=== PATIENT | female | born 1945 | race Caucasian/White ===

== ENCOUNTER → 2016-06-18 | Outpatient (CLI) | payer OTHER ==
[~2016-06-18] MED LIST: ALEN70TA4 PO; CYCL5TAB PO; DXY100 PO; ENAL2.5T PO; HYDR12.55 PO; LOSA1TAB PO; MECL1TAB42 PO; MELO7.5T7 PO; NAPR-1169 PO; NAPR220T40 PO; PRED10TA PO; PRVHFAIN INH; TAMO20TA9 PO
[2016-06-18 13:04] VITALS: BP 124/73; PULSE 85; TEMP 36.9; O2SAT 94
--- NOTE | 2016-06-18 15:36 | Radiation Oncology Follow-Up ---
Radiation Oncology Follow-Up Date of Visit Jun 18, 2016. Reason For Visit Annual follow-up Radiation Completion Date 02/16/13 Diagnosis (1) Breast cancer Status: Resolved Onset Date: 10/16/2012 Location: right Histology Subtype: ductal Stage: l Permanent Comment: 1. Abnormal right breast mammogram and subsequent ultrasound 2. Biopsy revealing infiltrating ductal carcinoma, ER positive, GA positive, HER-2/jaylan negative 3. Status post partial mastectomy and sentinel lymph node biopsy pathologic stage [id number] 4. Status post completion of radiation therapy 02/16/2013 received 6120 cGy Last Edited By: Deepika Gonsales on Jun 09, 2014 16:13 Interim History She's been doing well over this past year. She denies any changes to her breast. She has noted no masses or tenderness or change of the axilla. She's had no swelling of her arm. She is up-to-date on mammography. She had a mammogram 06/12/2015. This was a right breast mammogram. There was no significant interval change, no evidence to suggest malignancy. Recommend short -term interval follow-up, bilateral diagnostic mammogram Be performed in 6 months. She did have a bilateral diagnostic mammogram 12/15/2015. This showed stable mammogram without finding of malignancy. She has on tamoxifen and denies side effects. She was found to have a superficial bladder tumor this past year. This was removed by cystoscopic examination. She is now followed by cystoscopic examinations. Allergies Coded Allergies: No Known Drug Allergy (Unverified Allergy, none, 11/12/12) Home Medications Scheduled Alendronate Sodium (Fosamax), 70 MG PO WK Enalapril Maleate (Vasotec), 2.5 MG PO DAILY Hydrochlorothiazide (Hydrochlorothiazide), 1 TAB PO DAILY Tamoxifen (Nolvadex), 20 MG PO QAM Scheduled PRN Cyclobenzaprine Hcl (Flexeril), 1 TAB PO HS PRN for Pain Naproxen (Naprosyn), 500 MG PO BID PRN for Pain Naproxen Sodium (Aleve), 220 MG PO BID PRN Review of Systems Gastrointestinal: Symptoms: WNL Oral: Symptoms: No Problems Respiratory: Symptoms: WNL Urinary: Symptoms: WNL Skin: Symptoms: No Problems Breast: Right Upper Arm Measurement: 30.2 Right Mid Arm Measurement: 26.2 Right Wrist Measurement: 17.3 Left Upper Arm Measurement: 29.8 Left Mid Arm Measurement: 25.5 Left Wrist Measurement: 17.2 Arm Dominence: Left Physical Exam Vital Signs Date Time Temp Pulse Resp B/P Pulse Ox O2 Delivery O2 Flow Rate FiO2 06/18/16 13:04 36.9 85 18 124/73 94 Fatigue: None General Appearance: no apparent distress Eyes: normal inspection, EOMI ENT: normal ENT inspection, hearing grossly normal Neck: no adenopathy, thyroid normal Respiratory/Chest: lungs clear, no respiratory distress, no accessory muscle use Breast: Breast examination reveals well-healed incisions of the right breast. There are no masses or tenderness no axillary adenopathy. There are some fibrous changes above the incision area which are unchanged from previous. There are no distinct masses. There is no axillary adenopathy. She has slight telangiectasia in the upper outer quadrant area. Using the Manchester score cosmesis she has a good outcome. Left breast no masses or tenderness and no axillary adenopathy. Cardiovascular: regular rate, rhythm, no gallop, no murmur Abdomen: non tender, soft Extremities: no pedal edema Neurologic/Psychiatric: no motor/sensory deficits, alert, normal mood/affect Skin: warm/dry Lymphatic: no adenopathy Additional Studies Mammography as reviewed above. Assessment & Plan Plan: Continue regular follow-up with Dr. Wang and her primary care provider. She is scheduled for follow-up mammography. She continues on tamoxifen. We asked her to return to our office in 1 year. She may call if she has any questions or concerns in the interim. Total Time In Follow-Up I spent 20 minutes speaking to the patient and performing examination. I spent 15 minutes reviewing information and completing this note. Copy To Julian Wang M.D.; Yessi Allen PA-C
== END | disposition home or self-care (01) ==
LOC: C.ONC 12:50
PROVIDERS: ATTEND Physician Assistant Medical
DX: Z08 Encounter for follow-up examination after completed treatment for malignant neoplasm (principal); Z92.3 Personal history of irradiation; Z85.3 Personal history of malignant neoplasm of breast

== ENCOUNTER 2016-11-13 18:37 | Inpatient (IN) | payer OTHER ==
[~2016-11-13] VITALS: Ht 162.6 cm; Wt 81.5 kg
[~2016-11-13 18:37] MED LIST changes: -DXY100 PO; -LOSA1TAB PO; -MECL1TAB42 PO; -MELO7.5T7 PO; -PRED10TA PO; -PRVHFAIN INH; +TAMO20TA47 PO; -TAMO20TA9 PO
[2016-11-13] MEDS ORDERED: POLYETHYLENE (MIRALAX) 17 GM PACK PO PRN (21:30)
[2016-11-13] MEDS ORDERED: ONDANSETRON INJ 2 MG/ML 2 ML VIAL IV PRN (21:30)
[2016-11-13] MEDS ORDERED: ACETAMINOPHEN 325 MG TAB PO PRN (21:30)
[2016-11-13 21:47] VITALS: BP 134/79; PULSE 89; TEMP 36.5; O2SAT 94; Ht 162.6 cm; Wt 81.5 kg
[2016-11-13] MEDS ORDERED: DEXTROSE 50% 50 ML SYR IV PRN (22:00)
[2016-11-13] MEDS ORDERED: GLUCAGON FOR INJ 1 MG VIAL SQ PRN (22:00)
[2016-11-13] MEDS ORDERED: GLUCOSE 40% GEL 15 GM TUBE PO PRN (22:00)
[2016-11-13] MEDS ORDERED: GLUCOSE 10 TABS/TUBE PO PRN (22:00)
--- NOTE | 2016-11-13 22:16 | DIAGNOSTIC IMAGING REPORT ---
CHEST ONE VIEW PORTABLE CLINICAL HISTORY: Severe refractory RLL pneumonia COMPARISON STUDY: Outside radiograph dated 11/06/2016 FINDINGS: There is a left-sided PICC catheter. The tip projects at the superior vena cava. The heart is enlarged. There are right perihilar and lower lung zone airspace opacities, consistent with a pneumonia. The findings are improved when compared the preceding study..[ IMPRESSION: Right perihilar and lower lung zone airspace opacities consistent with pneumonia. There has been interval improvement when compared the prior outside chest x-ray dated 11/06/2016 Electronically signed by: Jarad Zavala M.D. 11/13/2016 10:15 PM Dictated Date/Time: 11/13/2016 10:13 PM
[2016-11-13] MEDS ORDERED: CEFEPIME CONSULT ACTIVE PRN ×2 (22:40)
[2016-11-13] MEDS ORDERED: LEVOFLOXACIN CONSULT ACTIVE PRN (22:45)
[2016-11-13] MEDS ORDERED: VANCOMYCIN CONSULT ACTIVE PRN (22:45)
[2016-11-13] MEDS ORDERED: LOSA1TAB PO (22:49)
[2016-11-13] MEDS ORDERED: MELO7.5T7 PO (22:49)
[2016-11-13] MEDS ORDERED: MECL1TAB42 PO (22:49)
[2016-11-13] MEDS ORDERED: CEFEPIME IV 2000 MG in DEXTROSE 5% 100ML IV SCH (23:00)
[2016-11-13] MEDS ORDERED: INFLUENZA ADMINISTRATION CHARGE ONE (23:15)
[2016-11-13] MEDS ORDERED: INFLUENZA VACCINE HIGH DOSE 65+ 0.5 ML SYR IM. ONE (23:15)
[2016-11-13 23:18] VITALS: BP 118/69; PULSE 79; TEMP 36.6; O2SAT 95
--- NOTE | 2016-11-13 23:39 | History and Physical ---
History & Physical Date & Time of Service: Nov 13, 2016 at ~ 22:15 Chief Complaint: Pneumonia Primary Care Physician: Yessi Allen PA-C History of Present Illness 71 year old female who was transferred from [facility] for treatment of persistent pneumonia. Patient presented to the ER there on 11/05 with reports of shortness and breath and cough. Patient reports she was feeling sick a few days prior to going to the ED. In the ED, she was found to be hypoxic on room air and meet sepsis criteria. Patient has been treated with Zosyn, Zithromax, Rocephin, Vanco, and Cefepime. Patient underwent bronchoscopy and culture grew rare gram + cocci, AFB cultures are pending. Pneumonia has persisted and she continues to require significant amounts of oxygen. Patient currently feels like her breathing is slightly worse than yesterday but attributes it to the transfer here. She reports minimal cough. No chest pain. She denies lightheadedness, dizziness, diaphoresis, or syncope. Appetite has been good. She denies abdominal pain, nausea, vomiting, or diarrhea. No recent fevers or chills. She denies urinary symptoms. At the time of my exam, patient is resting in bed, currently on hiflow oxygen at 75% FiO2. Past Medical/Surgical History Medical Problems: (1) Bladder cancer Status: Chronic (2) Breast cancer Permanent Comment: 1. Abnormal right breast mammogram and subsequent ultrasound 2. Biopsy revealing infiltrating ductal carcinoma, ER positive, DE positive, HER-2/jaylan negative 3. Status post partial mastectomy and sentinel lymph node biopsy pathologic stage [id number] 4. Status post completion of radiation therapy 02/16/2013 received 6120 cGy Status: Chronic (3) HTN (hypertension) Status: Chronic (4) Osteoporosis Status: Chronic (5) Pneumonia Status: Chronic Surgical Problems: (1) H/O partial mastectomy Status: Chronic (2) History of appendectomy Status: Chronic (3) History of hysterectomy Status: Chronic (4) Hx of cholecystectomy Status: Chronic Family History FH: Alzheimers disease MOTHER FH: myocardial infarction FATHER Social History Smoking Status: Former Smoker Alcohol Use: occasionally Allergies Coded Allergies: No Known Drug Allergy (Unverified Allergy, Unknown, none, 11/13/16) Home Medications Scheduled Alendronate Sodium (Fosamax), 70 MG PO WK Hydrochlorothiazide (Hydrochlorothiazide), 1 TAB PO DAILY Losartan Potassium (Cozaar), 1 TAB PO DAILY Tamoxifen (Nolvadex), 20 MG PO QAM Scheduled PRN Cyclobenzaprine Hcl (Flexeril), 1 TAB PO HS PRN for Pain Meclizine Hcl (Meclizine Hcl), 1 TAB PO TID PRN for Dizziness or Vertigo Meloxicam (Mobic), 1 TAB PO DAILY PRN for Pain Review of Systems ROS per HPI, all other systems reviewed and negative Physical Exam Vital Signs Date Time Temp Pulse Resp B/P (MAP) Pulse Ox O2 Delivery O2 Flow Rate FiO2 11/13/16 21:47 36.5 89 22 134/79 94 40.0 75 General Appearance: no apparent distress Head: normocephalic, atraumatic Eyes: normal inspection, sclerae normal ENT: hearing grossly normal Neck: supple, no JVD Respiratory/Chest: no respiratory distress, + crackles (right mid-lower lung edouard), + pertinent finding (on HiFlow oxygen at 75% Fi02) Cardiovascular: regular rate, rhythm, no edema, normal peripheral pulses Abdomen/GI: normal bowel sounds, non tender, soft Extremities/Musculoskelatal: normal inspection, no calf tenderness Neurologic/Psych: no motor/sensory deficits, alert, normal mood/affect, oriented x 3 Skin: normal color, warm/dry Diagnostics Laboratory Results Results Past 24 Hours Test 11/13/16 21:52 11/13/16 22:01 Range/Units Microbiology Results 11/13/16 Blood Culture, Ordered Pending 11/13/16 Blood Culture, Ordered Pending Diagnostic Radiology CXR IMPRESSION: Right perihilar and lower lung zone airspace opacities consistent with pneumonia. There has been interval improvement when compared the prior outside chest x-ray dated 11/06/2016 Impression Assessment and Plan ACUTE HYPOXIC RESPIRATORY FAILURE DUE TO PERSISTENT RML/RLL PNEUMONIA - admitted to [facility] as a transfer from [facility] - patient presented there on 11/05 with reports of shortness of breath and was found to be hypoxic on room air with RML/RLL pneumonia, patient also met sepsis criteria however did not require pressors or mechanical ventilator support; she has been treated with Zosyn, azithromycin, Rocephin, Vanco, and Cefepime however pneumonia and oxygen requirements have been persistent - currently on high flow O2, 75% FiO2 - wean as able - patient underwent bronch and per verbal report culture grew rare gram + cocci , AFB still pending - noted echo report: EF 55%, LA enlargement, small pericardial effusion, trace MR - case discussed with Dr. Calderón - ? RML/RLL collapse, ? empyema - will place patient on IV Levaquin, Vanco, and Cefepime HTN - BP controlled - continue HCTZ and Losartan if renal function acceptable HX BREAST CANCER \ HX BLADDER CANCER - per review of CT reports from [facility] Mart there was a right breast density noted - patient reports she is following with her oncologist regularly and is due for mammogram next month - continue Tamoxifen - had bladder tumor resected last fall; patient reports cystoscopies every 4 months HEPATIC LESIONS - noted on CT report from DANI[facility] Cevallos - consider dedicated abdominal imaging DVT PROPHYLAXIS - SCDs for now, consider pharmacologic prophylaxis once labs resulted DISPO - In my clinical judgment this beneficiary meets acute admission criteria, established by [facility], that includes being hospitalized through two midnights. ADDENDUM: I have seen and examined the patient and agree with the assessment and plan as stated. Dr. Calderón is aware of the case prior to admission and accepts the case. Recommended adding atypical coverage, which we did. Cont hi flow O2. [place], DO Advanced Directives Existing Living Will: No Existing Power of Bevel Operator: No VTE Prophylaxis VTE Risk Assessment Done? Y/N: Yes Risk Level: Moderate Given or contraindicated: Enoxaparin (Lovenox)SQ
[2016-11-13 23:43] LABS: BASO % 0.1 %; BASO ABS # 0.02 K/uL (0-0.2); HEMATOCRIT 33.5 % (37-47); IG% 1.9 %; LYMPH % 12.3 %; LYMPH ABS # 1.82 K/uL (1.2-3.4); MEAN CELL VOLUME 101.8 fL (80-100); MEAN CORPUSCULAR HEMOGLOBIN 31.6 pg (25-34); MONO % 5.6 %; NEUT % 80.1 %; PLATELET COUNT 412 K/uL (130-400); RED BLOOD COUNT 3.29 M/uL (4.2-5.4); WHITE BLOOD COUNT 14.82 K/uL (4.8-10.8)
[2016-11-13] MEDS ORDERED: ALBUT/IPRATROP 3MG/0.5MG NEB 3 ML VIAL INH PRN (23:45)
[2016-11-13 23:48] LABS: COMPLETE YES
[2016-11-13 23:52] LABS: INR 1.1 (0.9-1.1); PROTHROMBIN TIME (PATIENT) 12.2 SECONDS (9.0-12.0)
[2016-11-14] VITALS (12 sets, daily range): BP systolic 99–137; BP diastolic 59–72; PULSE 62–99; TEMP 36.5–37; O2SAT 88–100
[2016-11-14] MEDS ORDERED: LEVOFLOXACIN 750MG / D5W IV SCH
[2016-11-14 00:14] LABS: ALB/GLOB RATIO 0.6 (0.9-2); CALCIUM 8.3 mg/dl (8.5-10.1); POTASSIUM 4.1 mmol/L (3.5-5.1)
[2016-11-14 01:55] LABS: INFLUENZA A PCR Neg for Influ A (NEG); INFLUENZA B PCR Neg for Influ B (NEG)
[2016-11-14] MEDS ORDERED: VANCOMYCIN INJ 2,000 MG in SODIUM CHLORIDE 0.9% 500ML 500 ML IV SCH (02:00)
[2016-11-14 06:10] LABS: ESTIMATED AVERAGE GLUCOSE 128 mg/dl; HA1C FLAG Normal (Normal)
[2016-11-14 06:19] LABS: BASO % 0.1 %; BASO ABS # 0.01 K/uL (0-0.2); COMPLETE YES; EOS % 0.3 %; IG% 1.6 %; LYMPH % 16.6 %; MEAN CELL VOLUME 102.6 fL (80-100); MEAN CORPUSCULAR HEMOGLOBIN 31.7 pg (25-34); MEAN CORPUSCULAR HGB CONC 30.9 g/dl (32-36); MEAN PLATELET VOLUME 9.3 fL (7.4-10.4); MONO % 6.9 %; NEUT % 74.5 %; PLATELET COUNT 430 K/uL (130-400); RED BLOOD COUNT 3.12 M/uL (4.2-5.4); WHITE BLOOD COUNT 15.67 K/uL (4.8-10.8)
[2016-11-14 06:31] LABS: BUN/CREATININE RATIO 29.6 (10-20); CALCIUM 7.8 mg/dl (8.5-10.1); CREATININE 0.85 mg/dl (0.60-1.20); POTASSIUM 3.9 mmol/L (3.5-5.1)
--- NOTE | 2016-11-14 08:08 | Pulmonary Consultation ---
History General Date of Service: Nov 14, 2016. Stated Complaint: Pneumonia HPI The patient is a 71 year old female who presents to [facility] with complaints of Pneumonia. The patient's primary care provider is Yessi Allen PA-C. 71-year-old female transferred from [facility] for continued hypoxemia. Patient has a past medical history significant for breast carcinoma previously treated with partial mastectomy and radiation therapy can 2012. Patient has been noting increasing dyspnea on exertion since last winter and decreased overall physical activity associated with that. She denies any chronic cough, fever, chills, GI signs or symptoms, pleurisy or classic cardiac chest pain associated with this. She presented to [facility] after one to 2 days of progressive dyspnea on exertion and was noted to have a diffuse infiltrate by chest x-ray and thoracic CAT scan. CT angiogram was also performed of the thorax with no signs of pulmonary embolism. Bronchoscopy was also noted with no significant findings in the proximal airways. She's been treated with multiple antibiotics: Zosyn, Zithromax, Rocephin, vancomycin and cefepime. There been no definitive lab findings per report but I'm waiting for the paper chart to be transferred over. During our conversation the patient continues to note dyspnea at rest and once again denied classic cardiac chest pain or pleurisy as well as productive cough. She did have an episode of epistaxis last night associated with the high flow nasal cannula system. Current workup WBC: 15K (Neutro#: 11.87) INR/PT: 1.1/12.2 CL: 108 BUN: 26 Lact Acid: 2.4 Alb: 2.5 Globulin: 4.1 Influenza A & B: Negative Pending Procalcitonin Chest x-ray 11/13/2016: Continued hilar fullness R > L, splayed breana, CT thorax 11/07/2016: RLL atelectasis bronchial airway sign Possible small pleural effusion CTA thorax 11/09/2016 Mediastinal, hilar adenopathy Continued lobar atelectasis RLL Small pleural effusion Historian: patient, EMS Review of Systems Constitutional: reports: malaise, weakness Eyes: reports: no symptoms ENT: reports: no symptoms Cardiovascular: reports: as stated in HPI Respiratory: reports: as stated in HPI Gastrointestinal: reports: no symptoms Genitourinary - Female: reports: no symptoms Musculoskeletal: reports: myalgias Integumentary: reports: no symptoms Neurologic: reports: no symptoms Psychiatric: reports: no symptoms Endocrine: no symptoms Hematologic / Lymphatic: no symptoms Allergic / Immunologic: no symptoms Past Medical History Past Medical History: 1. Breast carcinoma: Infiltrating ductal carcinoma: T1b/cpN0 pathologic stage ER positive NV positive Her-2/jaylan negative XRT (12/29/2012-02/04/2013) 4680 cGy---right breast XRT (02/05/2013-02/16/2013) 1440 cGy---electron boost 2 excisional cavity Total XRT 6120 cGy 2. 0, para 0, menarche at age 12 3. Hypertension 4. Osteoporosis 5. Degenerative joint disease 6. Reflux 7. Superficial bladder tumor Past Surgical History: 1. Partial mastectomy, sentinel axillary node: 10/16/2012 2. Right breast stereotactic biopsy: 09/29/2012 3. Previous right breast biopsy 2007--per the records 4. Cholecystectomy 5. Hysterectomy 6. Appendectomy 7. Left ganglionic cyst excision 8. Cystoscopy--removal of bladder tumor Family History FH: Alzheimers disease MOTHER FH: myocardial infarction FATHER 1. Breast cancer: 2 sisters, niece 2. Mother--congestive heart failure, Alzheimer's 3. Father--CVA, CAD/mi, hypertension 3. Sister--benign brain tumor Social History Tobacco: Less than half a pack per day times 10 years, quit 1993 Alcohol: No use Occupation: Retired accountant certified public Living status: Hx Tobacco Use In Past Year?: No Smoking Status: Former Smoker Allergies Coded Allergies: No Known Drug Allergy (Unverified Allergy, Unknown, none, 11/13/16) Current Medications Reported Home Medications Medications Dose Route/Sig Max Daily Dose Days Date Category Cozaar (Losartan Potassium) 25 Mg Tab 1 Tab PO DAILY 30 11/13/16 Reported Meclizine Hcl 25 Mg Tab 1 Tab PO TID PRN 30 11/13/16 Reported Mobic (Meloxicam) 7.5 Mg Tab 1 Tab PO DAILY PRN 30 11/13/16 Reported Flexeril (Cyclobenzaprine Hcl) 5 Mg Tab 1 Tab PO HS PRN 30 06/18/16 Reported Nolvadex (Tamoxifen Citrate) 20 Mg Tab 20 Mg PO QAM 06/08/13 Reported Fosamax (Alendronate Sodium) 70 Mg Tab 70 Mg PO WK 11/12/12 Reported Hydrochlorothiazide 12.5 Mg Tab 1 Tab PO DAILY 11/12/12 Reported Physical Physical Exam Vital Signs: Date Time Temp Pulse Resp B/P (MAP) Pulse Ox O2 Delivery O2 Flow Rate FiO2 11/14/16 04:00 High Flow Oxygen 40.0 75 11/14/16 03:37 36.8 78 16 124/71 (88) 93 High Flow Oxygen 40.0 11/14/16 00:00 High Flow Oxygen 40.0 75 11/13/16 23:18 36.6 79 20 118/69 (85) 95 High Flow Oxygen 40.0 11/13/16 21:47 36.5 89 22 134/79 94 40.0 75 General Appearance: moderate distress Head: NORMOCEPHALIC, ATRAUMATIC Eyes: PERRLA, NO DISCHARGE, EOMI, SCLERAE NORMAL ENT: NORMAL EAR EXAM, NORMAL NASAL EXAM, NORMAL MOUTH EXAM, NORMAL THROAT EXAM , NORMAL DENTAL EXAM Neck: NORMAL RANGE OF MOTION, NO TENDERNESS, TRACHEA MIDLINE, NO STRIDOR Respiratory: other (decreased breath sounds especially at the bases right greater than left/thoracic ultrasound demonstrated minimal pleural effusion on the right side with notable 2-3 B-lines per field) Cardiovasular: REGULAR RATE/RHYTHM, NORMAL S1S2, NO M/G/R, NO MURMUR Abdomen: NON TENDER, NORMAL BOWEL SOUNDS, NO REBOUND, NO MASSES, NO GUARDING Genitourinary - Female: EXTERNAL GENITALIA NORMAL Back: NORMAL INSPECTION, NO MIDLINE TENDERNESS, NO CVA TENDERNESS, NO PARAVERTEBRAL TTP Upper Extremities: NO EDEMA, NO DEFORMITY, NORMAL ROM Lower Extremities: NO EDEMA, NO DEFORMITY, NORMAL ROM Pulses: carotid (R) (2+), carotid (L) (2+), posterior tibial (R) (2+), posterior tibial (L) (2+) Neuro: ALERT, ORIENTED x 3, NORMAL MOTOR EXAM, NORMAL SENSATION, NORMAL CEREBELLAR EXAM, NORMAL SPEECH Reflexes: biceps (R) (2+), bicpes (L) (2+), patellar (R) (2+), patellar (L) (2+ ) Babinski Testing: right (downgoing), left (downgoing) Psychiatric: flat affect Diagnostics Labs Results Past 24 Hours Test 11/13/16 23:29 11/14/16 00:00 11/14/16 05:10 Range/Units White Blood Count 14.82 15.67 4.8-10.8 K/uL Red Blood Count 3.29 3.12 4.2-5.4 M/uL Hemoglobin 10.4 9.9 12.0-16.0 g/dL Hematocrit 33.5 32.0 37-47 % Mean Corpuscular Volume 101.8 102.6 80-100 fL Mean Corpuscular Hemoglobin 31.6 31.7 25-34 pg Mean Corpuscular Hemoglobin Concent 31.0 30.9 32-36 g/dl Platelet Count 412 430 130-400 K/uL Mean Platelet Volume 9.0 9.3 7.4-10.4 fL Neutrophils (%) (Auto) 80.1 74.5 % Lymphocytes (%) (Auto) 12.3 16.6 % Monocytes (%) (Auto) 5.6 6.9 % Eosinophils (%) (Auto) 0.0 0.3 % Basophils (%) (Auto) 0.1 0.1 % Neutrophils # (Auto) 11.87 11.69 1.4-6.5 K/uL Lymphocytes # (Auto) 1.82 2.60 1.2-3.4 K/uL Monocytes # (Auto) 0.83 1.08 0.11-0.59 K/uL Eosinophils # (Auto) 0.00 0.04 0-0.5 K/uL Basophils # (Auto) 0.02 0.01 0-0.2 K/uL RDW Standard Deviation 54.1 54.5 36.4-46.3 fL RDW Coefficient of Variation 14.7 14.8 11.5-14.5 % Immature Granulocyte % (Auto) 1.9 1.6 % Immature Granulocyte # (Auto) 0.28 0.25 0.00-0.02 K/uL Prothrombin Time 12.2 9.0-12.0 SECONDS Prothromb Time International Ratio 1.1 0.9-1.1 Sodium Level 142 141 136-145 mmol/L Potassium Level 4.1 3.9 3.5-5.1 mmol/L Chloride Level 108 109 98-107 mmol/L Carbon Dioxide Level 26 24 21-32 mmol/L Anion Gap 8.0 8.0 3-11 mmol/L Blood Urea Nitrogen 26 25 7-18 mg/dl Creatinine 1.00 0.85 0.60-1.20 mg/dl Est Creatinine Clear Calc Drug Dose 52.9 62.5 ml/min Estimated GFR () 65.6 79.9 Estimated GFR (Non- 56.6 68.9 BUN/Creatinine Ratio 26.0 29.6 10-20 Random Glucose 135 107 70-99 mg/dl Lactic Acid Level 2.4 0.4-2.0 mmol/L Calcium Level 8.3 7.8 8.5-10.1 mg/dl Total Bilirubin 0.4 0.2-1 mg/dl Aspartate Amino Transf (AST/SGOT) 33 15-37 U/L Alanine Aminotransferase (ALT/SGPT) 38 12-78 U/L Alkaline Phosphatase 84 45-117 U/L Total Protein 6.6 6.4-8.2 gm/dl Albumin 2.5 3.4-5.0 gm/dl Globulin 4.1 2.5-4.0 gm/dl Albumin/Globulin Ratio 0.6 0.9-2 Influenza Type A (RT-PCR) Neg for Influ A NEG Influenza Type B (RT-PCR) Neg for Influ B NEG Estimated Average Glucose 128 mg/dl Hemoglobin A1c 6.1 4.5-5.6 % Microbiology Results 11/13/16 Blood Culture, Received Pending 11/13/16 Blood Culture, Received Pending Diagnostic Radiology Chest x-ray 11/13/2016: Continued hilar fullness R > L, splayed breana, CT thorax 11/07/2016: RLL atelectasis bronchial airway sign Possible small pleural effusion CTA thorax 11/09/2016 Mediastinal, hilar adenopathy Continued lobar atelectasis RLL Small pleural effusion Impression Assessment and Plan 71-year-old female with continued hypoxemia: #1 Hypoxemia: Patient is currently on high flow oxygen system and continues to have notable desaturations when talking down to 88%. She also has no history of underlying lung disease or cardiac disease so clinically the most likely scenario she's having shunt physiology. Due to this I would like to repeat a noncontrast CT at this time as well as perform a echocardiogram with bubble study. I will review these initial evaluations and possibly then proceed if patient stable enough for bronchoscopy. As patient has not responded to broad- spectrum antibiotics it is likely the patient has an underlying interstitial/ vasculitic lung disease. Cryptogenic organizing pneumonia could have a similar presentation. Also the patient is currently on tamoxifen as well as hydrochlorothiazide which have been noted the past to cause interstitial lung changes/pneumonitis or even pulmonary emboli. At this time we'll hold those medications after checking with the primary team. Continue current high flow oxygen system support.
[2016-11-14] MEDS: ENOXAPARIN 40 MG/0.4 ML SYR SQ SCH (09:00)
--- NOTE | 2016-11-14 09:41 | DIAGNOSTIC IMAGING REPORT ---
CT SCAN OF THE CHEST WITHOUT IV CONTRAST CLINICAL HISTORY: Hypoxia. COMPARISON STUDY: Chest x-ray dated 11/13/2016. Chest CT from adjacent bladder dated 11/07/2016. TECHNIQUE: CT scan of the thorax was performed from the thoracic inlet to the upper abdomen. Images are reviewed in the axial, sagittal, and coronal planes. IV contrast was not administered for this examination as per the referring clinician. A dose lowering technique was utilized adhering to the principles of ALARA. CT DOSE: 854.32 mGy.cm FINDINGS: Thyroid: Imaged portions of the thyroid gland are normal in size and attenuation. Thoracic aorta: The thoracic aorta is normal in caliber and demonstrates standard 3-vessel arch anatomy. A left PICC line is in place. Heart: The heart is enlarged and without pericardial effusion. The main pulmonary arteries are dilated suggesting pulmonary artery hypertension. There are coronary artery calcifications. Lungs and pleural spaces: There is dense airspace consolidation involving the majority of the right lower lobe. The right upper and middle lobes appear clear, as does the left lung lobe. Trace pleural effusions are identified. The trachea and central airways are clear. Mediastinum: There is no mediastinal lymphadenopathy. Cinthia: Not well assessed without IV contrast. Axillae: There is no axillary lymphadenopathy. Upper abdomen: There is nodularity of the hepatic surface contour with hypertrophy of the left lobe and caudate suggesting changes of cirrhosis. 2 hepatic cysts are identified measuring up to 2.0 cm. Cholecystectomy clips are noted. There is a tiny hiatal hernia. The spleen is atrophic and contains calcifications. Cortical atrophy is noted in the partially imaged kidneys. Skeletal structures: The skeletal structures are osteopenic. Degenerative change and hyperkyphosis are noted in the thoracic spine. No lytic or blastic bony lesions are seen. IMPRESSION: 1. There is dense airspace consolidation in the right lower lobe, overall similar in appearance to the 11/07/2016 examination. The appearance is typical for pneumonia. Radiographic follow-up to resolution is recommended. 2. The left lung is clear. 3. Cardiomegaly and trace pleural effusions. 4. Cirrhotic liver morphology. 5. Additional findings as above. Electronically signed by: Armand Herndon M.D. 11/14/2016 9:40 AM Dictated Date/Time: 11/14/2016 9:32 AM
[2016-11-14] MEDS: HYDROCHLOROTHIAZIDE 25 MG TAB PO SCH (09:49)
[2016-11-14] MEDS: LOSARTAN POTASSIUM 25 MG TAB PO SCH (09:49)
[2016-11-14] MEDS: TAMOXIFEN CITRATE 10 MG TAB PO SCH (09:50)
[2016-11-14] MEDS: CEFEPIME IV 2000 MG in DEXTROSE 5% 100ML IV SCH ×2 (09:51→17:39)
[2016-11-14] MEDS ORDERED: CEFEPIME IV 2000 MG in DEXTROSE 5% 100ML IV SCH (11:00)
--- NOTE | 2016-11-14 12:53 | Clinical Documentation Query ---
ANDIE Fishman : CLINICAL DOCUMENTATION QUERY Patient is a 71 year old female accepted in transfer from [facility] for evaluation and treatment of acute hypoxemic respiratory failure in the setting of persistent RML/RLL pneumonia. Documentation notes include (in reference to [facility] visit) "patient also met sepsis criteria however did not require pressors or mechanical ventilator support; she has been treated with Zosyn, azithromycin, Rocephin, Vanco, and Cefepime however pneumonia and oxygen requirements have been persistent". Please clarify as clinically appropriate to ensure accurate DRG assignment. Thank you. In your clinical opinion is this patient being managed for: ( ) Sepsis secondary to persistent RML/RLL pneumonia, possibly gram negative and/or MRSA ( ) Not Agree ( ) Other explanation of clinical findings (Please Explain) ( ) Unable to determine (Please Define) ( ) Need to Discuss NO evidence of sepsis Persisted RML/RLL pneumonia -no no improvement after multiple abx tx Need to rule out Vasculitis or interstitial lung disease The medical record reflects the following clinical findings, treatment, and risk factors. Clinical Indicators: As above Treatment:Zosyn, azithromycin, Rocephin, Vanco, and Cefepime Risk Factors: Age, recent antibiotic use and hospitalization Please clarify and document your clinical opinion in the progress notes and discharge summary. Terms such as "probable", "suspected", "likely", "questionable", "possible", or "still to be ruled out" are acceptable. IF IN AGREEMENT, YOU MUST DOCUMENT ABOVE DIAGNOSTIC STATEMENT IN DAILY PROGRESS NOTES AND DISCHARGE SUMMARY. This document is not part of the patient's record. Thank You, Jesús Bazan, RN [phone]
[2016-11-14] MEDS: LEVALBUTEROL 0.63MG/3 ML NEB INH SCH ×2 (14:19→19:41)
--- NOTE | 2016-11-14 15:35 | Pharmacy Progress Note ---
Pharmacy Abx Initial Consult Date of Service Nov 14, 2016. Pharmacy Dosing Scope Date of Consult: 11/12/16 Consultation requested by: Dr. Perry Pharmacy is consulted to initiate Vancomycin, Levaquin and Cefepime dosing therapy, order appropriate labs and adjust drug dose/frequency. Subjective The patient is a 71 year old female admitted on Nov 13, 2016 at 21:32 directly from [facility] in [place] with worsening hypoxia/PNX. Patient had received multiple broad spectrum antibiotics at [facility] of which two (Cefepime and Vancomycin) were continued by Dr. Perry Objective Height (Feet): 5 Height (Inches): 4.00 Weight (Kilograms): 80.900 Vital Signs (Past 12Hrs) Vital Signs Past 12 Hours Date Time Temp Pulse Resp B/P (MAP) Pulse Ox O2 Delivery O2 Flow Rate FiO2 11/14/16 14:21 88 18 93 Nasal Cannula 40.0 80 11/14/16 12:01 36.6 82 18 117/69 (85) 96 High Flow Oxygen 11/14/16 12:00 94 High Flow Oxygen 40.0 75 11/14/16 08:00 94 High Flow Oxygen 40.0 75 11/14/16 07:59 36.8 85 18 127/72 (90) 92 High Flow Oxygen 11/14/16 04:00 High Flow Oxygen 40.0 75 11/14/16 03:37 36.8 78 16 124/71 (88) 93 High Flow Oxygen 40.0 Lab Results (24Hrs) Laboratory Tests (24 Hours) Test 11/13/16 23:29 11/14/16 05:10 Lactic Acid Level 2.4 mmol/L (0.4-2.0) *H Procalcitonin 0.14 ng/ml (0-0.5) White Blood Count 15.67 K/uL (4.8-10.8) H Red Blood Count 3.12 M/uL (4.2-5.4) L Hemoglobin 9.9 g/dL (12.0-16.0) L Hematocrit 32.0 % (37-47) L Mean Corpuscular Volume 102.6 fL (80-100) H Mean Corpuscular Hemoglobin 31.7 pg (25-34) Mean Corpuscular Hemoglobin Concent 30.9 g/dl (32-36) L Platelet Count 430 K/uL (130-400) H Mean Platelet Volume 9.3 fL (7.4-10.4) Neutrophils (%) (Auto) 74.5 % Lymphocytes (%) (Auto) 16.6 % Monocytes (%) (Auto) 6.9 % Eosinophils (%) (Auto) 0.3 % Basophils (%) (Auto) 0.1 % Neutrophils # (Auto) 11.69 K/uL (1.4-6.5) H Lymphocytes # (Auto) 2.60 K/uL (1.2-3.4) Monocytes # (Auto) 1.08 K/uL (0.11-0.59) H Eosinophils # (Auto) 0.04 K/uL (0-0.5) Basophils # (Auto) 0.01 K/uL (0-0.2) Micro Results Date/Time Source Procedure Growth Status 11/13/16 23:38 Blood Blood Culture Pending Received 11/13/16 23:29 Blood Blood Culture Pending Received 11/14/16 11:10 Nasal MRSA DNA Surveillance Screen Pending Received Risk Factors for Resistance * Hospitalization for 48 hours or more within the past 90 days (as noted; from [facility]) * Antimicrobial use within the last 90 days transferred from [facility] where she had received Zithromax, Cefepime, Zosyn, Rocephin and Vancomycin Assessment & Plan Assessment 71 year old female with Pneumonia directly admitted from [facility] Plan Vancomycin, Levaquin and Cefepime for treatment of Pneumonia Vancomycin IV * Loading dose: 2000 mg (~25 mg/kg) of note: patient had received several days of Vancomycin at [facility], I obtained a random level around 0930 that resulted in a level of 35mcg/ml. I calculated a half life of around 12 hours given patients current renal picture. * Maintenance dose: 1250 mg IV (~15mg/kg) every 14 hours * Goal trough level for PNX : 15 to 20 mcg/mL * Trough level ordered prior to 0200 dose on 11/16/16 Cefepime IV Given est CRCL of>60ml/min Cefepime 2gm IV every 8 hours Levaquin IV Given est CRCL of >50ml/min Levaquin 750mg IV every 24 hours. Pharmacy will continue to follow and will adjust dose/frequency as necessary. Thank you.
--- NOTE | 2016-11-14 18:33 | Progress Note ---
Internal Med Progress Note Date of Service: Nov 14, 2016. Provider Documentation: SUBJECTIVE: remains hypoxic , requiring high flow 02 had episode of dizzy spell with transfer form bedside commode to bed spo2 remained stable , was hypotensive SBP in 116 transiently recovered quickly no syncope lying in bed comfortably ,does not feel SOB , no orthopnea does not have any cough remains afebrile OBJECTIVE: Vital Signs-as noted below Exam: General-no sign of distress Eyes-sclera non icteric ENT-on high flow 02 Neck-no JVD Lungs-very diminished airflow , no audible wheeze or rales noted Heart-regular Abdomen-soft, non tender Extremities-no lower ext edema Neuro-AAO x3, no focal deficit Lab data as noted below. ASSESSMENT & PLAN: ACUTE HYPOXIC RESPIRATORY FAILURE: On going respiratory failure with Cxray and CT chest finding of persisted RLL infiltrate , not responding to multiple broad spectrum Abx was admitted to [facility] ICU since 11/05 with hypoxia/RML /RLL pneumonia medical records obtained form [facility] -pt does not have any prior hx of COPD , was not on home 02 -was treated with Zosyn, azithromycin, Rocephin, Vanco, and Cefepime however pneumonia and oxygen requirements have been persistent -underwent Bronchoscopy on 11/08/16 -gram stain shows gram + cocci , culture -no growth in 72 hrs Blood culture -no growth CT chest with contrast at [facility] 11/09/16 : no evidence of PE , dense consolidation of rt lower lobe most likely related to Pneumonia , non specific subcarinal and rt hilar adenopathy ECHO in [facility] : EF 55%, LA enlargement, small pericardial effusion, trace MR pt transferred to [facility] For persisted respiratory failure no clinical improvement after Abx tx /bronchoscopy/respiratory support with IV Steroids / Neb tx -no evidence of sepsis pt continued on Abx with IV Levaquin, Vancomycin, and Cefepime -till further culture report available repeat blood cultures ordered at [facility] Pulmonology consulted , appreciate input from Dr Langford concern for possible Vasculitis vs idiopathic interstitial lung disease -not responding to convention tx CT chest with out contrast a [facility] IMPRESSION: 1. There is dense airspace consolidation in the right lower lobe, overall similar in appearance to the 11/07/2016 examination. The appearance is typical for pneumonia. Radiographic follow-up to resolution is recommended. 2. The left lung is clear. 3. Cardiomegaly and trace pleural effusions. 4. Cirrhotic liver morphology. 5. Additional findings as above. ECHO No regional wall motion abnormalities noted. * The LV Ejection Fraction = 60-65%. * The right ventricle is mildly dilated. * The right ventricular systolic function is normal. * There is mild tricuspid regurgitation. * The calculated pulmonary artery systolic pressure is 32 mm Hg (normal). * There was no gross interatrial shunt on technically limited evaluaiton with administration of agitated saline contrast. * The resolution is not sufficient to exclude a PFO. * 2D findings do not suggest right ventricular pressure or volume overload. pt will continue to require High flow 02 for persistent hypoxia will order MAULIK. ANCA , ESR , C reactive protein level HTN - BP controlled - continue HCTZ and Losartan HX BREAST CANCER \ HX BLADDER CANCER - per review of CT reports from [facility] there was a right breast density noted - patient reports she is following with her oncologist regularly and is due for mammogram next month - continue Tamoxifen - had bladder tumor resected last fall; patient reports cystoscopies every 4 months HEPATIC LESIONS - noted on CT report from [facility] - consider dedicated abdominal imaging DVT PROPHYLAXIS - sub q heparin need to be on hold prior to any Bronc procedure Full code DISPOSITION to be determined cont to monitor in PCU Vital Signs: Date Time Temp Pulse Resp B/P (MAP) Pulse Ox O2 Delivery O2 Flow Rate FiO2 11/14/16 20:00 High Flow Oxygen 40.0 75 11/14/16 19:46 99 18 88 Nasal Cannula 40.0 60 11/14/16 19:40 36.5 90 20 122/69 (86) 100 High Flow Oxygen 40.0 11/14/16 16:35 36.7 83 18 122/71 (88) 95 High Flow Oxygen 11/14/16 16:00 93 Nasal Cannula 40.0 80 11/14/16 14:21 88 18 93 Nasal Cannula 40.0 80 11/14/16 12:01 36.6 82 18 117/69 (85) 96 High Flow Oxygen 11/14/16 12:00 94 High Flow Oxygen 40.0 75 11/14/16 08:00 94 High Flow Oxygen 40.0 75 11/14/16 07:59 36.8 85 18 127/72 (90) 92 High Flow Oxygen 11/14/16 04:00 High Flow Oxygen 40.0 75 11/14/16 03:37 36.8 78 16 124/71 (88) 93 High Flow Oxygen 40.0 11/14/16 00:00 High Flow Oxygen 40.0 75 11/13/16 23:18 36.6 79 20 118/69 (85) 95 High Flow Oxygen 40.0 Lab Results: Results Past 24 Hours Test 11/13/16 23:29 11/14/16 00:00 11/14/16 05:10 11/14/16 09:40 Range/Units White Blood Count 14.82 15.67 4.8-10.8 K/uL Red Blood Count 3.29 3.12 4.2-5.4 M/uL Hemoglobin 10.4 9.9 12.0-16.0 g/dL Hematocrit 33.5 32.0 37-47 % Mean Corpuscular Volume 101.8 102.6 80-100 fL Mean Corpuscular Hemoglobin 31.6 31.7 25-34 pg Mean Corpuscular Hemoglobin Concent 31.0 30.9 32-36 g/dl Platelet Count 412 430 130-400 K/uL Mean Platelet Volume 9.0 9.3 7.4-10.4 fL Neutrophils (%) (Auto) 80.1 74.5 % Lymphocytes (%) (Auto) 12.3 16.6 % Monocytes (%) (Auto) 5.6 6.9 % Eosinophils (%) (Auto) 0.0 0.3 % Basophils (%) (Auto) 0.1 0.1 % Neutrophils # (Auto) 11.87 11.69 1.4-6.5 K/uL Lymphocytes # (Auto) 1.82 2.60 1.2-3.4 K/uL Monocytes # (Auto) 0.83 1.08 0.11-0.59 K/uL Eosinophils # (Auto) 0.00 0.04 0-0.5 K/uL Basophils # (Auto) 0.02 0.01 0-0.2 K/uL RDW Standard Deviation 54.1 54.5 36.4-46.3 fL RDW Coefficient of Variation 14.7 14.8 11.5-14.5 % Immature Granulocyte % (Auto) 1.9 1.6 % Immature Granulocyte # (Auto) 0.28 0.25 0.00-0.02 K/uL Prothrombin Time 12.2 9.0-12.0 SECONDS Prothromb Time International Ratio 1.1 0.9-1.1 Sodium Level 142 141 136-145 mmol/L Potassium Level 4.1 3.9 3.5-5.1 mmol/L Chloride Level 108 109 98-107 mmol/L Carbon Dioxide Level 26 24 21-32 mmol/L Anion Gap 8.0 8.0 3-11 mmol/L Blood Urea Nitrogen 26 25 7-18 mg/dl Creatinine 1.00 0.85 0.60-1.20 mg/dl Est Creatinine Clear Calc Drug Dose 52.9 62.5 ml/min Estimated GFR () 65.6 79.9 Estimated GFR (Non- 56.6 68.9 BUN/Creatinine Ratio 26.0 29.6 10-20 Random Glucose 135 107 70-99 mg/dl Lactic Acid Level 2.4 0.4-2.0 mmol/L Calcium Level 8.3 7.8 8.5-10.1 mg/dl Total Bilirubin 0.4 0.2-1 mg/dl Aspartate Amino Transf (AST/SGOT) 33 15-37 U/L Alanine Aminotransferase (ALT/SGPT) 38 12-78 U/L Alkaline Phosphatase 84 45-117 U/L Total Protein 6.6 6.4-8.2 gm/dl Albumin 2.5 3.4-5.0 gm/dl Globulin 4.1 2.5-4.0 gm/dl Albumin/Globulin Ratio 0.6 0.9-2 Procalcitonin 0.14 0-0.5 ng/ml Influenza Type A (RT-PCR) Neg for Influ A NEG Influenza Type B (RT-PCR) Neg for Influ B NEG Estimated Average Glucose 128 mg/dl Hemoglobin A1c 6.1 4.5-5.6 % Random Vancomycin Level 35.3 mcg/ml Microbiology Results 11/13/16 Blood Culture, Received Pending 11/13/16 Blood Culture, Received Pending 11/14/16 MRSA DNA Surveillance Screen - Final, Complete Specimen Negative for MRSA by DNA Probe
--- NOTE | 2016-11-14 18:57 | ECHOCARDIOGRAM REPORT ---
*NOTICE TO RECEIVING REPUBLICAN AGENCY This information is strictly Confidential and protected under [place] law. [place] law prohibits you from making any further disclosure of this information unless further disclosure is expressly permitted by the written consent of the person to whom it pertains or is authorized by law. A general authorization for the release of medical or other information is not sufficient for this purpose. Hospital accepts no responsibility if the information is made available to any other person, INCLUDING THE PATIENT. Interpretation Summary * Name: TYLER TRIPP Study Date: 11/14/2016 03:21 PM BP: 117/69 mmHg * Patient Location: .2T\S\S230\S\1 HR: 88 * : 1945 (M/d/yyyy) Gender: Female Height: 64 in * Age: 71 yrs Ethnicity: [place] Weight: 178 lb * Ordering Physician: Joseph Calderón * Referring Physician: No Doctor, Assigned * Performed By: Jayde Patterson [facility] * * Reason For Study: Ischemic Cardiomyopathy * BSA: 1.9 m2 * -- Conclusions -- * No regional wall motion abnormalities noted. * The LV Ejection Fraction = 60-65%. * The right ventricle is mildly dilated. * The right ventricular systolic function is normal. * There is mild tricuspid regurgitation. * The calculated pulmonary artery systolic pressure is 32 mm Hg (normal). * There was no gross interatrial shunt on technically limited evaluation with administration of agitated saline contrast. * The resolution is not sufficient to exclude a PFO. * 2D findings do not suggest right ventricular pressure or volume overload. Procedure Details * A complete two-dimensional transthoracic echocardiogram was performed (2D, M-mode, Doppler and color flow Doppler). * A saline contrast injection was performed to assess for cardiac shunting. * The injection was performed through an intravenous line in the left arm. * The attending nurse who injected the saline contrast was Jose Tenorio RN. * A total of 20 cc of agitated saline was given. Left Ventricle * The left ventricle is normal in size. * There is normal left ventricular wall thickness. * Left ventricular systolic function is normal. * Ejection Fraction = 60-65%. * The left ventricular wall motion is normal. * No regional wall motion abnormalities noted. Right Ventricle * The right ventricle is mildly dilated. * The right ventricular systolic function is normal. Atria * The left atrium is mildly dilated. * Right atrial size is normal. * There was no gross interatrial shunt on technically limited evaluaiton with administration of agitated saline contrast. The resolution is not sufficient to exclude a PFO. Mitral Valve * The mitral valve is normal. * There is no mitral valve stenosis. * Significant mitral regurgitation is absent. Tricuspid Valve * The tricuspid valve is normal. * There is no tricuspid stenosis. * There is mild tricuspid regurgitation. * Doppler findings do not suggest pulmonary hypertension. * The calculated pulmonary artery systolic pressure is 32 mm Hg (normal). Aortic Valve * The aortic valve is trileaflet. * Aortic valve sclerosis mild, without significant aortic valvular stenosis. * Aortic stenosis is absent. * There is no significant aortic regurgitation. Pulmonic Valve * The pulmonary valve is not well seen, but the Doppler examination is normal without significant regurgitation or stenosis. Great Vessels * The aortic root and proximal ascending aorta are normal sized. Pericardium/Pleural * There is no pericardial effusion. Great Vessels * Normal inferior vena cava diameter and respiratory variation suggests normal central venous pressure. Left Ventricular Diastolic Function * Grade I diastolic dysfunction, (abnormal relaxation pattern). MMode 2D Measurements and Calculations IVSd 0.93 cm IVSs 1.3 cm LVIDd 4.3 cm LVIDs 2.8 cm LVPWd 0.97 cm LVPWs 1.3 cm IVS/LVPW 0.97 FS 34.7 % EDV(Teich) 81.4 ml ESV(Teich) 29.1 ml EF(Teich) 64.2 % EDV(cubed) 77.4 ml ESV(cubed) 21.6 ml EF(cubed) 72.2 % % IVS thick 36.5 % % LVPW thick 35.1 % LV mass(C)d 130.9 grams LV mass(C)dI 70.3 grams/m\S\2 LV mass(C)s 111.0 grams LV mass(C)sI 59.6 grams/m\S\2 SV(Teich) 52.3 ml SI(Teich) 28.1 ml/m\S\2 SV(cubed) 55.9 ml SI(cubed) 30.0 ml/m\S\2 Ao root diam 3.2 cm Ao root area 7.9 cm\S\2 ACS 1.3 cm LA dimension 4.4 cm asc Aorta Diam 2.7 cm LA/Ao 1.4 Doppler Measurements and Calculations MV E max genesis 94.5 cm/sec MV A max genesis 121.0 cm/sec MV E/A 0.78 MV dec time 0.25 sec Ao V2 max 130.1 cm/sec Ao max PG 6.8 mmHg Ao max PG (full) 3.7 mmHg LV V1 max PG 3.0 mmHg LV V1 max 86.8 cm/sec TR max genesis 227.1 cm/sec
[2016-11-14] MEDS: DORNASE ALFA (2500U) 2.5MG/2.5ML INH SCH (19:41)
[2016-11-14] MEDS: VANCOMYCIN INJ 1,250 MG in SODIUM CHLORIDE 0.9% 250ML 250 ML IV SCH (21:51)
[2016-11-15] VITALS (11 sets, daily range): BP systolic 93–135; BP diastolic 55–80; PULSE 87–96; TEMP 36.5–36.9; O2SAT 92–96
[2016-11-15] MEDS: LEVOFLOXACIN 750MG / D5W IV SCH (00:33)
[2016-11-15] MEDS: LEVALBUTEROL 0.63MG/3 ML NEB INH SCH ×4 (01:48→20:27)
[2016-11-15] MEDS: CEFEPIME IV 2000 MG in DEXTROSE 5% 100ML IV SCH ×3 (01:50→18:24)
[2016-11-15] MEDS: DORNASE ALFA (2500U) 2.5MG/2.5ML INH SCH ×2 (07:09→20:27)
[2016-11-15 07:11] LABS: ARTERIAL BLD GAS O2 SATURATION 97.1 % (90-95); ARTERIAL BLOOD GAS BASE EXCESS -1.3 mEq/L (-9-1.8); ARTERIAL BLOOD GAS HCO3 21 mmol/L (19-24); ARTERIAL BLOOD GAS PO2 96 mm/Hg (80-95)
[2016-11-15 07:13] LABS: HEMATOCRIT 32.1 % (37-47); MEAN CELL VOLUME 99.4 fL (80-100); MEAN CORPUSCULAR HEMOGLOBIN 32.8 pg (25-34); MEAN PLATELET VOLUME 8.7 fL (7.4-10.4); PLATELET COUNT 361 K/uL (130-400); RED BLOOD COUNT 3.23 M/uL (4.2-5.4)
[2016-11-15 07:21] LABS: ARTERIAL BLOOD GAS pH 7.51 (7.35-7.45)
[2016-11-15 07:22] LABS: ALLEN TEST POS (POS); O2 ADMINISTRATION 6 L
--- NOTE | 2016-11-15 07:38 | DIAGNOSTIC IMAGING REPORT ---
CHEST ONE VIEW PORTABLE CLINICAL HISTORY: Right lower lobe pneumonia. COMPARISON STUDY: Chest radiograph November 13, [address] T November 14, 2016. FINDINGS: A left PICC is in place. No pneumothorax or pleural effusion is present. Dense right lower lobe consolidation with volume loss persists. There is no cavitation. There is no evidence of pulmonary edema. Cardiomediastinal silhouette is stable. IMPRESSION: No significant change in extensive right lower lobe pneumonia. Electronically signed by: Toño Alejandre M.D. 11/15/2016 7:37 AM Dictated Date/Time: 11/15/2016 7:29 AM
[2016-11-15] MEDS: TAMOXIFEN CITRATE 10 MG TAB PO SCH (07:42)
[2016-11-15] MEDS: ENOXAPARIN 40 MG/0.4 ML SYR SQ SCH (07:42)
[2016-11-15] MEDS: LOSARTAN POTASSIUM 25 MG TAB PO SCH (07:43)
[2016-11-15] MEDS: HYDROCHLOROTHIAZIDE 25 MG TAB PO SCH (07:43)
[2016-11-15 07:47] LABS: BUN/CREATININE RATIO 29.7 (10-20); C-REACTIVE PROTEIN 0.44 mg/dl (0-0.29); CALCIUM 8.6 mg/dl (8.5-10.1); CREATININE 0.98 mg/dl (0.60-1.20); POTASSIUM 4.3 mmol/L (3.5-5.1)
--- NOTE | 2016-11-15 12:02 | Pulmonology Progress Note ---
Pulmonary Progress Note Date of Service Nov 15, 2016. Attending Dr. Calderón Subjective Patient feels she is slowly improving over the last 24 hours but still notes dyspnea on exertion Objective Patient still looks fatigued and has tachypnea during our conversation on high- flow oxygen system: I/Os: -1.4L SaO2: 92-94% FiO2: Hi-Jose system (10-50L) RR: 16-18 RESP: Decreased breath sounds right lower lobe otherwise is minimal breath sounds bilateral CARD: S1-S2 distant heart sounds EXT: No clubbing cyanosis or edema noted ABD: Positive bowel sounds soft nontender Studies: WBC: 10K PLT: 361 CRP: 0.44(H) BNP: 107 Pre-Albumin: 27.3 ABG (11/15/16) 7.51/// (Hi-Flow) Procaclcitonin: 0.14 (WNL) Influ A&B: Negative Cardiac Echo (11/14/16) LV: EF=60-65%, RV: mildly dilated, with normal systolic function Atria: Left atria mildly dilated, no notable intra-atrial shunt Could not exclude PFO RSVP: 32mmHg Grade 1 diastolic dysfunction Micro: MRSA swab: negative Blood x2: negative to date Pending: MAULIK screen [facility] Mart antibiotic course Bronchoscopy 11/08/16: Anatomically within normal limits, diffuse mucoid secretions bilaterally ABX: Zosyn, Azithromycin, Rocephin ICU: Vancomycin cefepime Pulmonary function studies 08/11/2015 Spirometry: Mild obstructive ventilatory disease with an FEV1 of 81% Lung lungs: Within normal limits Diffusion: Severely reduced at 38% with a DLCO/VA ratio of 80% AB.57// (4L) Assessment & Plan 71-year-old female who admitted with hypoxemia and right lower lobe consolidation: 1. Hypoxemia: After reviewing the patient's chart it does appear that somebody perform pulmonary function tests on her in 2016 and they had a notably decreased diffusion capacity at 38%. After reviewing this with the patient she does note that she has had progressive dyspnea over the last year and was read worked up by her primary care physician. She denies any radiographic examination but this time I have asked for the patient's primary care doctor's notes and any radiographic images to be transferred to the [facility] system. The patient has been on excellent antibiotics and has had minimal response since her arrival. Also the bronchoscopy performed at the outside facility only noted mucus plugs bilaterally but otherwise no definitive findings have been found off that examination. I am tempted to discontinue the antibiotics but the patient did present with a notable leukocytosis of 24,000 at this time is slowly progressing in a forward/positive direction. Due to this I suggest we continue current antibiotics but discontinue after a 10 day course. This highly likely that this patient has more chronic/in did not underlying condition such as cryptogenic organizing pneumonia, described of interstitial pneumonitis or even other etiologies such as sarcoidosis or other chronic pulmonary conditions. If the patient's ANCA panel does come back positive I will speak to Dr. Vasquez hill was on over the weekend about initiating prednisone at 0.5 kg/mg daily. As the patient is still notably hypoxic and required endotracheal tube intubation prior to her last bronchoscopy she is still too risk and undergo more aggressive bronchoscopic intervention at this time. 2. Medications: Patient is notably on tamoxifen as well as hydrochlorothiazide which to have a small risk of causing an interstitial process. At this time I am still attempting to run this case by Oncology prior to suggesting discontinuation of medication. Data Medications: Current Inpatient Medications Medications (Trade) Dose Ordered Sig/Marlene Route Start Time Stop Time Status Last Admin Dose Admin Acetaminophen (Tylenol Tab) 650 mg Q4H PRN PO 11/13/16 21:30 12/13/16 21:29 Ondansetron HCl (Zofran Inj) 4 mg Q6H PRN IV 11/13/16 21:30 12/13/16 21:29 Polyethylene (Miralax Powder Packet) 17 gm DAILY PRN PO 11/13/16 21:30 12/13/16 21:29 Glucose (Glucose 40% Gel) 15-30 GRAMS 15 GRAMS... UD PRN PO 11/13/16 22:00 12/13/16 21:59 Glucose (Glucose Chew Tab) 4-8 Tablets 4 Tabl... UD PRN PO 11/13/16 22:00 12/13/16 21:59 Dextrose (Dextrose 50% 50ML Syringe) 25-50ML OF 50% DW IV FOR... UD PRN IV 11/13/16 22:00 12/13/16 21:59 Glucagon (Glucagon Inj) 1 mg UD PRN SQ 11/13/16 22:00 12/13/16 21:59 Cefepime HCl (Consult) 1 ea DAILY PRN N/A 11/13/16 22:40 12/13/16 22:39 Levofloxacin (Consult) 1 ea UD PRN N/A 11/13/16 22:45 12/13/16 22:44 Vancomycin HCl (Consult) 1 ea UD PRN N/A 11/13/16 22:45 12/13/16 22:44 Albuterol/ Ipratropium (Duoneb) 3 ml Q6H PRN INH 11/13/16 23:45 12/13/16 23:44 Enoxaparin Sodium (Lovenox Inj) 40 mg QAM SQ 11/14/16 09:00 12/14/16 08:59 11/15/16 07:42 40 MG Losartan Potassium (coZAAR TAB) 25 mg DAILY PO 11/14/16 09:00 12/14/16 08:59 11/15/16 07:43 25 MG Tamoxifen Citrate (Nolvadex Tab) 20 mg QAM PO 11/14/16 09:00 12/14/16 08:59 11/15/16 07:42 20 MG Hydrochlorothiazide (Hydrochlorothiazide Tab) 12.5 mg QAM PO 11/14/16 09:00 12/14/16 08:59 11/15/16 07:43 12.5 MG Levofloxacin 750 mg/Prmx 150 ml @ 100 mls/hr DAILY@0000 IV 11/15/16 00:00 11/20/16 01:29 11/15/16 00:33 100 MLS/HR Cefepime HCl 2000 mg/Dextrose 112.5 ml @ 225 mls/hr Q8H IV 11/14/16 10:00 11/20/16 23:59 11/15/16 10:01 225 MLS/HR Vancomycin HCl 1250 mg/Sodium Chloride 275 ml @ 125 mls/hr Q14H IV 11/14/16 22:00 11/19/16 23:59 11/14/16 21:51 125 MLS/HR Dornase Oj (Pulmozyme Inhalation Soln 2.5ml Amp) 2.5 ml BIDR INH 11/14/16 20:00 12/14/16 19:59 11/15/16 07:09 2.5 ML Levalbuterol (Xopenex 0.63 Mg/ 3 Ml Neb) 0.63 mg Q6R INH 11/14/16 15:00 12/14/16 14:59 11/15/16 07:09 0.63 MG Heparin Sodium (Porcine) (Heparin 10 Unit/ ml 5 ml Flush) 5 ml PRN PRN FLUSH 11/15/16 01:15 12/15/16 01:14 Vital Signs: Date Time Temp Pulse Resp B/P (MAP) Pulse Ox O2 Delivery O2 Flow Rate FiO2 11/15/16 11:32 36.6 89 20 104/63 (77) 95 High Flow Oxygen 11/15/16 08:04 High Flow Oxygen 50.0 50 11/15/16 07:34 36.5 87 18 114/72 (86) 93 High Flow Oxygen 11/15/16 07:11 93 16 92 Nasal Cannula 45.0 50 11/15/16 04:00 High Flow Oxygen 50.0 50 11/15/16 03:55 36.9 90 16 135/80 (98) 93 High Flow Oxygen 50.0 11/15/16 01:48 94 16 94 Nasal Cannula 50.0 60 11/15/16 00:00 High Flow Oxygen 40.0 75 11/14/16 22:40 37.0 89 18 99/59 (72) 95 High Flow Oxygen 40.0 11/14/16 21:08 94 116/70 (85) 11/14/16 20:00 High Flow Oxygen 40.0 75 11/14/16 19:46 99 18 88 Nasal Cannula 40.0 60 11/14/16 19:40 36.5 90 20 122/69 (86) 100 High Flow Oxygen 40.0 11/14/16 16:35 36.7 83 18 122/71 (88) 95 High Flow Oxygen 11/14/16 16:00 93 Nasal Cannula 40.0 80 11/14/16 14:21 88 18 93 Nasal Cannula 40.0 80 11/14/16 12:01 36.6 82 18 117/69 (85) 96 High Flow Oxygen 11/14/16 12:00 94 High Flow Oxygen 40.0 75 Laboratory Results: Last 24 Hours Test 11/15/16 06:52 White Blood Count 10.00 K/uL Red Blood Count 3.23 M/uL Hemoglobin 10.6 g/dL Hematocrit 32.1 % Mean Corpuscular Volume 99.4 fL Mean Corpuscular Hemoglobin 32.8 pg Mean Corpuscular Hemoglobin Concent 33.0 g/dl RDW Standard Deviation 53.3 fL RDW Coefficient of Variation 14.7 % Platelet Count 361 K/uL Mean Platelet Volume 8.7 fL Erythrocyte Sedimentation Rate 12 mm/hr Arterial Blood pH 7.51 Arterial Blood Partial Pressure CO2 27 mmHg Arterial Blood Partial Pressure O2 96 mm/Hg Arterial Blood HCO3 21 mmol/L Arterial Blood Oxygen Saturation 97.1 % Arterial Blood Base Excess -1.3 mEq/L Arterial Blood Gas Delivery 6 L Jace Test POS Sodium Level 139 mmol/L Potassium Level 4.3 mmol/L Chloride Level 109 mmol/L Carbon Dioxide Level 21 mmol/L Anion Gap 9.0 mmol/L Blood Urea Nitrogen 29 mg/dl Creatinine 0.98 mg/dl Est Creatinine Clear Calc Drug Dose 54.0 ml/min Estimated GFR () 67.3 Estimated GFR (Non- 58.0 BUN/Creatinine Ratio 29.7 Random Glucose 132 mg/dl Lactic Acid Level 1.2 mmol/L Calcium Level 8.6 mg/dl C-Reactive Protein 0.44 mg/dl Pro-B-Type Natriuretic Peptide 107 pg/ml Prealbumin 27.3 mg/dl
[2016-11-15] MEDS: VANCOMYCIN INJ 1,250 MG in SODIUM CHLORIDE 0.9% 250ML 250 ML IV SCH (12:55)
--- NOTE | 2016-11-15 19:49 | Progress Note ---
Internal Med Progress Note Date of Service: Nov 15, 2016. Provider Documentation: SUBJECTIVE: breathing much better today still on high flow 02 minimum cough no fever or chills OBJECTIVE: Vital Signs-as noted below Exam: General-no sign of distress Eyes-sclera non icteric ENT-on high flow 02 Neck-no JVD Lungs-very diminished airflow , no audible wheeze or rales noted Heart-regular Abdomen-soft, non tender Extremities-no lower ext edema Neuro-AAO x3, no focal deficit Lab data as noted below. ASSESSMENT & PLAN: ACUTE HYPOXIC RESPIRATORY FAILURE: WITH RML/RLL PNEUMONIA -no evidence of sepsis On going respiratory failure with Cxray and CT chest finding of persisted RLL infiltrate , not responding to multiple broad spectrum Abx was admitted to [facility] ICU since 11/05 with hypoxia/RML /RLL pneumonia medical records obtained form [facility] -pt does not have any prior hx of COPD , was not on home 02 -was treated with Zosyn, azithromycin, Rocephin, Vanco, and Cefepime however pneumonia and oxygen requirements have been persistent -underwent Bronchoscopy on 11/08/16 -gram stain shows gram + cocci , culture -no growth in 72 hrs Blood culture -no growth CT chest with contrast at [facility] 11/09/16 : no evidence of PE , dense consolidation of rt lower lobe most likely related to Pneumonia , non specific subcarinal and rt hilar adenopathy ECHO in [facility] : EF 55%, LA enlargement, small pericardial effusion, trace MR Pulmonary function studies 08/11/2015 Spirometry: Mild obstructive ventilatory disease with an FEV1 of 81% Lung lungs: Within normal limits Diffusion: Severely reduced at 38% with a DLCO/VA ratio of 80% pt transferred to [facility] For persisted respiratory failure no clinical improvement after Abx tx /bronchoscopy/respiratory support with IV Steroids / Neb tx -no evidence of sepsis pt continued on Abx with IV Levaquin, Vancomycin, and Cefepime - repeat blood cultures ordered at [facility] -no growth MRSA screen negative given pt is afebrile , leukocytosis has resolved will D/c Vancomycin ( negative MRSA ) and Cefepime cont Levaquin for total 10 days Pulmonology consulted , appreciate input from Dr Langford concern for possible Vasculitis vs idiopathic interstitial lung disease -not responding to convention tx CT chest with out contrast a [facility] IMPRESSION: 1. There is dense airspace consolidation in the right lower lobe, overall similar in appearance to the 11/07/2016 examination. The appearance is typical for pneumonia. Radiographic follow-up to resolution is recommended. 2. The left lung is clear. 3. Cardiomegaly and trace pleural effusions. 4. Cirrhotic liver morphology. 5. Additional findings as above. ECHO No regional wall motion abnormalities noted. * The LV Ejection Fraction = 60-65%. * The right ventricle is mildly dilated. * The right ventricular systolic function is normal. * There is mild tricuspid regurgitation. * The calculated pulmonary artery systolic pressure is 32 mm Hg (normal). * There was no gross interatrial shunt on technically limited evaluaiton with administration of agitated saline contrast. * The resolution is not sufficient to exclude a PFO. * 2D findings do not suggest right ventricular pressure or volume overload. pt will continue to require High flow 02 for persistent hypoxia ordered MAULIK. ANCA , ESR , C reactive protein level may need repeat Bronchoscopy as hypoxia improves HTN - BP controlled - continue HCTZ and Losartan HX BREAST CANCER \ HX BLADDER CANCER - per review of CT reports from [facility] there was a right breast density noted - patient reports she is following with her oncologist regularly and is due for mammogram next month - continue Tamoxifen - had bladder tumor resected last fall; patient reports cystoscopies every 4 months HEPATIC LESIONS - noted on CT report from [facility] C[facility] - will consider dedicated abdominal imaging as respiratory status improves DVT PROPHYLAXIS - sub q heparin need to be on hold prior to any Bronc procedure Full code DISPOSITION to be determined cont to monitor in PCU Vital Signs: Date Time Temp Pulse Resp B/P (MAP) Pulse Ox O2 Delivery O2 Flow Rate FiO2 11/16/16 16:00 Nasal Cannula 4.0 11/16/16 15:26 36.4 113 20 105/71 (82) 92 Nasal Cannula 4.0 11/16/16 14:18 90 16 93 Nasal Cannula 30.0 30 11/16/16 12:00 97 Room Air 11/16/16 11:21 36.9 106 16 106/66 (79) 91 High Flow Oxygen 30.0 11/16/16 08:00 97 High Flow Oxygen 30.0 30 11/16/16 07:16 37.0 93 18 114/69 (84) 92 High Flow Oxygen 11/16/16 06:55 90 16 93 Nasal Cannula 30.0 30 11/16/16 04:00 36.8 89 18 118/67 (84) 96 High Flow Oxygen 11/16/16 04:00 96 Nasal Cannula 30.0 30 11/16/16 01:56 94 16 96 Nasal Cannula 40.0 40 11/16/16 00:00 36.9 98 20 110/61 (77) 96 High Flow Oxygen 11/15/16 23:59 96 Nasal Cannula 40.0 40 11/15/16 20:34 90 16 96 Nasal Cannula 40.0 40 11/15/16 20:33 36.5 92 18 105/61 (76) 93 11/15/16 20:30 90 16 96 Nasal Cannula 40.0 40 11/15/16 20:00 High Flow Oxygen 40.0 40 Lab Results: Results Past 24 Hours Test 11/16/16 05:02 11/16/16 12:48 Range/Units White Blood Count 11.92 4.8-10.8 K/uL Red Blood Count 3.27 4.2-5.4 M/uL Hemoglobin 10.3 12.0-16.0 g/dL Hematocrit 33.2 37-47 % Mean Corpuscular Volume 101.5 80-100 fL Mean Corpuscular Hemoglobin 31.5 25-34 pg Mean Corpuscular Hemoglobin Concent 31.0 32-36 g/dl RDW Standard Deviation 54.2 36.4-46.3 fL RDW Coefficient of Variation 14.8 11.5-14.5 % Platelet Count 378 130-400 K/uL Mean Platelet Volume 8.8 7.4-10.4 fL Sodium Level 142 136-145 mmol/L Potassium Level 4.0 3.5-5.1 mmol/L Chloride Level 112 98-107 mmol/L Carbon Dioxide Level 23 21-32 mmol/L Anion Gap 7.0 3-11 mmol/L Blood Urea Nitrogen 29 7-18 mg/dl Creatinine 0.98 0.60-1.20 mg/dl Est Creatinine Clear Calc Drug Dose 54.0 ml/min Estimated GFR () 67.3 Estimated GFR (Non- 58.0 BUN/Creatinine Ratio 30.0 10-20 Random Glucose 126 70-99 mg/dl Calcium Level 8.3 8.5-10.1 mg/dl
[2016-11-16] VITALS (13 sets, daily range): BP systolic 98–118; BP diastolic 61–71; PULSE 89–113; TEMP 36.4–37.1; O2SAT 91–97
[2016-11-16] MEDS: LEVOFLOXACIN 750MG / D5W IV SCH (00:12)
[2016-11-16] MEDS ORDERED: VANCOMYCIN TROUGH SCH (01:30)
[2016-11-16] MEDS: LEVALBUTEROL 0.63MG/3 ML NEB INH SCH ×4 (01:56→19:48)
[2016-11-16 05:25] LABS: HEMATOCRIT 33.2 % (37-47); MEAN CELL VOLUME 101.5 fL (80-100); MEAN CORPUSCULAR HEMOGLOBIN 31.5 pg (25-34); MEAN PLATELET VOLUME 8.8 fL (7.4-10.4); PLATELET COUNT 378 K/uL (130-400); RED BLOOD COUNT 3.27 M/uL (4.2-5.4); WHITE BLOOD COUNT 11.92 K/uL (4.8-10.8)
[2016-11-16 06:04] LABS: CALCIUM 8.3 mg/dl (8.5-10.1); CREATININE 0.98 mg/dl (0.60-1.20)
[2016-11-16] MEDS: DORNASE ALFA (2500U) 2.5MG/2.5ML INH SCH ×2 (07:22→19:48)
[2016-11-16] MEDS: LOSARTAN POTASSIUM 25 MG TAB PO SCH (08:20)
[2016-11-16] MEDS: HYDROCHLOROTHIAZIDE 25 MG TAB PO SCH (08:21)
[2016-11-16] MEDS: ENOXAPARIN 40 MG/0.4 ML SYR SQ SCH (08:22)
[2016-11-16] MEDS: TAMOXIFEN CITRATE 10 MG TAB PO SCH (08:25)
--- NOTE | 2016-11-16 13:21 | PULMONARY PROGRESS NOTE ---
DATE: 11/16/2016 DATE: 11/16/2016 TIME: 12:35 p.m. SUBJECTIVE: The patient is still quite short of breath with any exertion. She has very little cough. There has been no sputum production. She does feel hungry today. She noticed a rash on her lower abdomen last evening. It was itching. This responded to some cream on the abdomen. She is not having any chest pains. Her history was discussed with her at length. OBJECTIVE: GENERAL: The patient appears comfortable at rest. She does, however, have high-flow oxygen in place. VITAL SIGNS: Current temperature is 36.9. HEAD, EYES, EARS, NOSE, AND THROAT: Pupils were reactive. High flow nasal is in place. MOUTH EXAMINATION: Was unremarkable. NECK: Palpation of the neck reveals no lymph nodes. HEART: Rate is 110 per minute. The rhythm was regular. LUNGS: Auscultation of the lung edouard reveals prominent crackles in the right lower lung field posteriorly. The breath sounds are diminished. CHEST: Respiratory rate was 18 breaths per minute. The oxygen saturation is 91% on 30% high flow. Inspection of the posterior chest reveals a macular and slightly papular eruption. It is itchy. ABDOMEN: She does have a rash in the mid to lower abdomen and goes down into the groin and onto the upper legs anteriorly. The patient was unaware of the rash on her back or the rash on her legs. There was no cyanosis, clubbing or edema. LABORATORY DATA: White count is 11.92. Hemoglobin is 10.3. Platelets are 378,000. Electrolytes show sodium 142, potassium 4.0, chloride 112, bicarb 23. The ANCA levels are pending. Flu test was negative. I did review the patient's x-rays and CAT scan. The scan shows extensive consolidation in the right lower lobe with air bronchograms. IMPRESSIONS: 1. Consolidation right lower lobe -- radiographically most compatible with pneumonia. Cannot exclude noninfectious causes as well. 2. Rash -- rule out antibiotic induced. 3. Hypoxia secondary to #1. COMMENTS AND RECOMMENDATIONS: The patient is clinically improving. She is requiring less oxygen. She feels a little better. She is not getting better; however, dramatically quickly. Complicating this is that she has now developed a rash. The most likely source of the rash if it was related to medications would be levofloxacin. However, she has recently had courses of cefepime and vancomycin as well. She also had Zosyn when she was at [facility] and appears she had Zithromax. I have asked nursing to keep a close eye on the rash and see if it progresses. Dr. Calderón suggested that if her ANCA levels were positive that we would initiate steroids but otherwise would prefer to hold off. She may need another bronchoscopy if things do not resolve quickly. I will check a sed rate and legionella antigen. Will follow up with the patient tomorrow.
--- NOTE | 2016-11-16 18:35 | Progress Note ---
Internal Med Progress Note Date of Service: Nov 16, 2016. Provider Documentation: SUBJECTIVE: much better today managed to be transitioned to 4 L via nasal canula has minimum SOB dry non productive cough no fever or chills developed diffuse rash on abdomen /torso with itching possible Drug rash Abx changed -Levaquin D/alexis PO Doxycycline ordered cont Prednisone and Benadryl OBJECTIVE: Vital Signs-as noted below Exam: General-no sign of distress Eyes-sclera non icteric ENT-on high flow 02 Neck-no JVD Lungs-very diminished airflow , no audible wheeze or rales noted Heart-regular Abdomen-soft, non tender Extremities-no lower ext edema Neuro-AAO x3, no focal deficit Lab data as noted below. ASSESSMENT & PLAN: ACUTE HYPOXIC RESPIRATORY FAILURE: WITH RML/RLL PNEUMONIA -no evidence of sepsis respiratory status gradually improving h Cxray and CT chest finding of persisted RLL infiltrate , not responding to multiple broad spectrum Abx was admitted to [facility] ICU since 11/05 with hypoxia/RML /RLL pneumonia medical records obtained form [facility] -pt does not have any prior hx of COPD , was not on home 02 -was treated with Zosyn, azithromycin, Rocephin, Vanco, and Cefepime however pneumonia and oxygen requirements have been persistent -underwent Bronchoscopy on 11/08/16 -gram stain shows gram + cocci , culture -no growth in 72 hrs Blood culture -no growth CT chest with contrast at [facility] 11/09/16 : no evidence of PE , dense consolidation of rt lower lobe most likely related to Pneumonia , non specific subcarinal and rt hilar adenopathy ECHO in [facility] : EF 55%, LA enlargement, small pericardial effusion, trace MR Pulmonary function studies 08/11/2015 Spirometry: Mild obstructive ventilatory disease with an FEV1 of 81% Lung lungs: Within normal limits Diffusion: Severely reduced at 38% with a DLCO/VA ratio of 80% pt transferred to [facility] For persisted respiratory failure no clinical improvement after Abx tx /bronchoscopy/respiratory support with IV Steroids / Neb tx -no evidence of sepsis pt on Abx with IV Levaquin, Vancomycin, and Cefepime - repeat blood cultures ordered at [facility] -no growth MRSA screen negative given pt is afebrile , leukocytosis has resolved will D/c Vancomycin ( negative MRSA ) and Cefepime was on Levaquin developed diffuse rash -on trunk and abdomen Levaquin D/alexis Started on PO Doxycycline added Prednisone and Benadryl cont to monitor Pulmonology consulted , appreciate input from Dr Langford concern for possible Vasculitis vs idiopathic interstitial lung disease -not responding to convention tx CT chest with out contrast a [facility] IMPRESSION: 1. There is dense airspace consolidation in the right lower lobe, overall similar in appearance to the 11/07/2016 examination. The appearance is typical for pneumonia. Radiographic follow-up to resolution is recommended. 2. The left lung is clear. 3. Cardiomegaly and trace pleural effusions. 4. Cirrhotic liver morphology. 5. Additional findings as above. ECHO No regional wall motion abnormalities noted. * The LV Ejection Fraction = 60-65%. * The right ventricle is mildly dilated. * The right ventricular systolic function is normal. * There is mild tricuspid regurgitation. * The calculated pulmonary artery systolic pressure is 32 mm Hg (normal). * There was no gross interatrial shunt on technically limited evaluaiton with administration of agitated saline contrast. * The resolution is not sufficient to exclude a PFO. * 2D findings do not suggest right ventricular pressure or volume overload. pt will continue to require High flow 02 for persistent hypoxia ordered MAULIK. ANCA , ESR , C reactive protein level may need repeat Bronchoscopy as hypoxia improves -will defer to Pulmonology HTN - BP controlled - continue HCTZ and Losartan HX BREAST CANCER \ HX BLADDER CANCER - per review of CT reports from [facility] there was a right breast density noted - patient reports she is following with her oncologist regularly and is due for mammogram next month - continue Tamoxifen - had bladder tumor resected last fall; patient reports cystoscopies every 4 months HEPATIC LESIONS - noted on CT report from [facility] Mart - will consider dedicated abdominal imaging as respiratory status improves DVT PROPHYLAXIS - sub q heparin need to be on hold prior to any Bronc procedure Full code DISPOSITION to be determined cont to monitor in PCU Vital Signs: Date Time Temp Pulse Resp B/P (MAP) Pulse Ox O2 Delivery O2 Flow Rate FiO2 11/17/16 14:21 104 16 92 Nasal Cannula 4.0 11/17/16 12:00 Nasal Cannula 4.0 11/17/16 10:38 36.9 109 18 93/51 (65) 94 Nasal Cannula 3.5 11/17/16 08:00 Nasal Cannula 4.0 11/17/16 07:25 37.1 98 19 106/59 (75) 91 Nasal Cannula 4.0 11/17/16 07:08 97 16 92 Nasal Cannula 4.0 11/17/16 04:00 Nasal Cannula 4.0 11/17/16 03:45 36.7 93 18 111/68 (82) 93 Nasal Cannula 4.0 11/17/16 02:01 101 16 94 Nasal Cannula 4.0 11/17/16 00:02 Nasal Cannula 4.0 11/16/16 23:32 37.1 98 18 98/64 (75) 92 Nasal Cannula 4.0 11/16/16 20:00 Nasal Cannula 4.0 11/16/16 19:51 91 16 95 Nasal Cannula 4.0 11/16/16 18:58 36.8 103 18 99/62 (74) 91 Nasal Cannula 4.0 11/16/16 16:00 Nasal Cannula 4.0 11/16/16 15:26 36.4 113 20 105/71 (82) 92 Nasal Cannula 4.0 Lab Results: Results Past 24 Hours Test 11/16/16 23:20 11/17/16 04:41 Range/Units White Blood Count 11.39 4.8-10.8 K/uL Red Blood Count 3.07 4.2-5.4 M/uL Hemoglobin 10.1 12.0-16.0 g/dL Hematocrit 31.1 37-47 % Mean Corpuscular Volume 101.3 80-100 fL Mean Corpuscular Hemoglobin 32.9 25-34 pg Mean Corpuscular Hemoglobin Concent 32.5 32-36 g/dl RDW Standard Deviation 53.1 36.4-46.3 fL RDW Coefficient of Variation 14.5 11.5-14.5 % Platelet Count 340 130-400 K/uL Mean Platelet Volume 8.9 7.4-10.4 fL Erythrocyte Sedimentation Rate 9 0-21 mm/hr Sodium Level 140 136-145 mmol/L Potassium Level 4.8 3.5-5.1 mmol/L Chloride Level 112 98-107 mmol/L Carbon Dioxide Level 20 21-32 mmol/L Anion Gap 8.0 3-11 mmol/L Blood Urea Nitrogen 28 7-18 mg/dl Creatinine 1.00 0.60-1.20 mg/dl Est Creatinine Clear Calc Drug Dose 52.9 ml/min Estimated GFR () 65.6 Estimated GFR (Non- 56.6 BUN/Creatinine Ratio 28.3 10-20 Random Glucose 189 70-99 mg/dl Calcium Level 8.4 8.5-10.1 mg/dl
[2016-11-16] MEDS: DOXYCYCLINE HYCLATE 100 MG CAP PO SCH (21:34)
[2016-11-17] VITALS (10 sets, daily range): BP systolic 91–111; BP diastolic 51–68; PULSE 93–114; TEMP 36.6–37.1; O2SAT 91–94
[2016-11-17] MEDS: LEVALBUTEROL 0.63MG/3 ML NEB INH SCH ×4 (02:01→19:28)
[2016-11-17 05:12] LABS: HEMATOCRIT 31.1 % (37-47); MEAN CELL VOLUME 101.3 fL (80-100); MEAN CORPUSCULAR HEMOGLOBIN 32.9 pg (25-34); MEAN CORPUSCULAR HGB CONC 32.5 g/dl (32-36); MEAN PLATELET VOLUME 8.9 fL (7.4-10.4); PLATELET COUNT 340 K/uL (130-400); RED BLOOD COUNT 3.07 M/uL (4.2-5.4); WHITE BLOOD COUNT 11.39 K/uL (4.8-10.8)
[2016-11-17 05:46] LABS: BUN/CREATININE RATIO 28.3 (10-20); CALCIUM 8.4 mg/dl (8.5-10.1); POTASSIUM 4.8 mmol/L (3.5-5.1)
[2016-11-17] MEDS: DORNASE ALFA (2500U) 2.5MG/2.5ML INH SCH ×2 (07:08→19:28)
[2016-11-17] MEDS: HYDROCHLOROTHIAZIDE 25 MG TAB PO SCH (08:18)
[2016-11-17] MEDS: DOXYCYCLINE HYCLATE 100 MG CAP PO SCH ×2 (08:18→20:48)
[2016-11-17] MEDS: LOSARTAN POTASSIUM 25 MG TAB PO SCH (08:19)
[2016-11-17] MEDS: ENOXAPARIN 40 MG/0.4 ML SYR SQ SCH (08:19)
[2016-11-17] MEDS: TAMOXIFEN CITRATE 10 MG TAB PO SCH (08:22)
[2016-11-17] MEDS ORDERED: LEVOFLOXACIN 750 MG TAB PO SCH (11:00)
--- NOTE | 2016-11-17 17:29 | PULMONARY PROGRESS NOTE ---
DATE: 11/17/2016 TIME: 04:30 p.m. SUBJECTIVE: The patient feels better. Her overall sense of wellbeing has improved. She is sitting up in the chair. She is somewhat concerned about her blood pressure. She states she usually is about 120 systolic and she has been under 100. She does not feel symptomatic in that regard, however. She has an occasional cough. She is not expectorating. She is now off of the high-flow oxygen and is on 4 liter nasal cannula. OBJECTIVE: GENERAL: The patient is comfortable at rest. She was cooperative, alert and oriented. VITAL SIGNS: Temperature 36.9. Her heart rate is 108 per minute. Rhythm is sinus tachycardia. Review of her vitals shows that she generally has had a slightly higher heart rate yesterday and today. LUNGS: Auscultation of the lung edouard reveals rales and tubular breath sounds in the right lower lung field. Left lung was fairly clear. The respiratory rate was 20 per minute. Her oxygen saturation on 4 liters is 91%. LABORATORY DATA: White count is 11.39. Hemoglobin is 10.1. Platelets 340,000. Sed rate checked yesterday was 12 and today was 9. Electrolytes today show sodium 140, potassium 4.8, chloride 112, and bicarbonate 20. BUN was 28 with a creatinine of 1.0. She has had mild elevation of the BUN-creatinine ratio ever since admission. Not mentioned above is that the patient persists with a rash on her back. She now has a rash on the left upper arm. The patient tells me that the lower abdominal rash is doing well. IMPRESSIONS: 1. Consolidative pneumonia, right lower lobe. 2. Hypoxia. 3. Rash -- questionably related to antibiotics. COMMENTS AND RECOMMENDATIONS: The Levaquin was stopped yesterday. She was changed to doxycycline. I agree with that change and just wait and see how it goes for her. Clinically, she seems better. She is getting prednisone that was started yesterday. We will repeat an x-ray tomorrow in both PA and lateral views. The portable x-rays have not shown the infiltrate at all well. The CAT scan demonstrated it much more significantly. We will see how a complete chest x-ray does, however.
--- NOTE | 2016-11-17 17:36 | Progress Note ---
Internal Med Progress Note Date of Service: Nov 17, 2016. Provider Documentation: SUBJECTIVE: had episode of dizzy spell /lightheadedness while going to bathroom episode only lasted for few seconds as per pt no syncope, had transient chest heaviness ; was found to be hypotensive SBP in low 90's remains in 4 L 02 given pt been bedbound for the past few days due to respiratory distress CTA of chest for PE and lower ext Doppler are done -negative for PE /DVT pt seen at bedside after the imagines are done -denies of any discomfort feels a bit anxious no complain of palpitation, no worsening of SOB no further episode of dizzy spell OBJECTIVE: Vital Signs-as noted below Exam: General-no sign of distress , comfortable , Eyes-sclera non icteric ENT-on 02 via nasal canula Neck-no JVD Lungs-improved auscultation , no audible wheeze or rales Heart-regular Abdomen-soft, non tender Extremities-no lower ext edema , no rash noted Neuro-AAO x3, no focal deficit Lab data as noted below. ASSESSMENT & PLAN: ACUTE HYPOXIC RESPIRATORY FAILURE: WITH RML/RLL PNEUMONIA -no evidence of sepsis respiratory status gradually improving now transitioned to 4 L 02 via nasal canula plan to wean down to 2 L in am pt will need 2 step exercise done prior to discharge home to assess home 02 requirement presented with Cxray and CT chest finding of persisted RLL infiltrate , not responding to multiple broad spectrum Abx was admitted to [facility] ICU since 11/05 with hypoxia/RML /RLL pneumonia medical records obtained form [facility] -pt does not have any prior hx of COPD , was not on home 02 -was treated with Zosyn, azithromycin, Rocephin, Vanco, and Cefepime however pneumonia and oxygen requirements have been persistent -underwent Bronchoscopy on 11/08/16 -gram stain shows gram + cocci , culture -no growth in 72 hrs Blood culture -no growth CT chest with contrast at [facility] 11/09/16 : no evidence of PE , dense consolidation of rt lower lobe most likely related to Pneumonia , non specific subcarinal and rt hilar adenopathy ECHO in [facility] : EF 55%, LA enlargement, small pericardial effusion, trace MR Pulmonary function studies 08/11/2015 Spirometry: Mild obstructive ventilatory disease with an FEV1 of 81% Lung lungs: Within normal limits Diffusion: Severely reduced at 38% with a DLCO/VA ratio of 80% pt transferred to [facility] For persisted respiratory failure no clinical improvement after Abx tx /bronchoscopy/respiratory support with IV Steroids / Neb tx -no evidence of sepsis pt on Abx with IV Levaquin, Vancomycin, and Cefepime - repeat blood cultures ordered at [facility] -no growth MRSA screen negative given pt is afebrile , leukocytosis has resolved will D/c Vancomycin ( negative MRSA ) and Cefepime was on Levaquin developed diffuse rash -on trunk and abdomen Levaquin D/alexis Started on PO Doxycycline added Prednisone and Benadryl cont to monitor Pulmonology consulted , appreciate input from Dr Langford concern for possible Vasculitis vs idiopathic interstitial lung disease -not responding to convention tx CT chest with out contrast a [facility] IMPRESSION: 1. There is dense airspace consolidation in the right lower lobe, overall similar in appearance to the 11/07/2016 examination. The appearance is typical for pneumonia. Radiographic follow-up to resolution is recommended. 2. The left lung is clear. 3. Cardiomegaly and trace pleural effusions. 4. Cirrhotic liver morphology. 5. Additional findings as above. ECHO No regional wall motion abnormalities noted. * The LV Ejection Fraction = 60-65%. * The right ventricle is mildly dilated. * The right ventricular systolic function is normal. * There is mild tricuspid regurgitation. * The calculated pulmonary artery systolic pressure is 32 mm Hg (normal). * There was no gross interatrial shunt on technically limited evaluaiton with administration of agitated saline contrast. * The resolution is not sufficient to exclude a PFO. * 2D findings do not suggest right ventricular pressure or volume overload. pt will continue to require High flow 02 for persistent hypoxia ordered MAULIK. ANCA , ESR , C reactive protein level may need repeat Bronchoscopy as hypoxia improves -will defer to Pulmonology HYPOTENSION /DIZZY SPELL ; symptom has resolved CTA of chest -negative for PE/ lower ext Doppler negative for DVT found to be hypotensive given nss 250 ml fluid bolus hold Losartan /HCTZ cont IVF with nSS @ 100 ml /hr HTN - BP in lower side hold all antihypertensives for nowe HX BREAST CANCER \ HX BLADDER CANCER - per review of CT reports from DANI[facility] Cevallos there was a right breast density noted - patient reports she is following with her oncologist regularly and is due for mammogram next month - continue Tamoxifen - had bladder tumor resected last fall; patient reports cystoscopies every 4 months HEPATIC LESIONS - noted on CT report from D[facility] Cevallos - will consider dedicated abdominal imaging as respiratory status improves DVT PROPHYLAXIS Lovenox SC Full code DISPOSITION cont to monitor in PCU ordered for PT.OT eval in AM Vital Signs: Date Time Temp Pulse Resp B/P (MAP) Pulse Ox O2 Delivery O2 Flow Rate FiO2 11/17/16 19:33 114 18 91 Nasal Cannula 4.0 11/17/16 16:15 36.9 107 20 91/58 (69) 91 Nasal Cannula 5.0 11/17/16 15:57 Nasal Cannula 4.0 11/17/16 14:21 104 16 92 Nasal Cannula 4.0 11/17/16 12:00 Nasal Cannula 4.0 11/17/16 10:38 36.9 109 18 93/51 (65) 94 Nasal Cannula 3.5 11/17/16 08:00 Nasal Cannula 4.0 11/17/16 07:25 37.1 98 19 106/59 (75) 91 Nasal Cannula 4.0 11/17/16 07:08 97 16 92 Nasal Cannula 4.0 11/17/16 04:00 Nasal Cannula 4.0 11/17/16 03:45 36.7 93 18 111/68 (82) 93 Nasal Cannula 4.0 11/17/16 02:01 101 16 94 Nasal Cannula 4.0 11/17/16 00:02 Nasal Cannula 4.0 11/16/16 23:32 37.1 98 18 98/64 (75) 92 Nasal Cannula 4.0 Lab Results: Results Past 24 Hours Test 11/16/16 23:20 11/17/16 04:41 Range/Units White Blood Count 11.39 4.8-10.8 K/uL Red Blood Count 3.07 4.2-5.4 M/uL Hemoglobin 10.1 12.0-16.0 g/dL Hematocrit 31.1 37-47 % Mean Corpuscular Volume 101.3 80-100 fL Mean Corpuscular Hemoglobin 32.9 25-34 pg Mean Corpuscular Hemoglobin Concent 32.5 32-36 g/dl RDW Standard Deviation 53.1 36.4-46.3 fL RDW Coefficient of Variation 14.5 11.5-14.5 % Platelet Count 340 130-400 K/uL Mean Platelet Volume 8.9 7.4-10.4 fL Erythrocyte Sedimentation Rate 9 0-21 mm/hr Sodium Level 140 136-145 mmol/L Potassium Level 4.8 3.5-5.1 mmol/L Chloride Level 112 98-107 mmol/L Carbon Dioxide Level 20 21-32 mmol/L Anion Gap 8.0 3-11 mmol/L Blood Urea Nitrogen 28 7-18 mg/dl Creatinine 1.00 0.60-1.20 mg/dl Est Creatinine Clear Calc Drug Dose 52.9 ml/min Estimated GFR () 65.6 Estimated GFR (Non- 56.6 BUN/Creatinine Ratio 28.3 10-20 Random Glucose 189 70-99 mg/dl Calcium Level 8.4 8.5-10.1 mg/dl
[2016-11-17] MEDS ORDERED: OPTIRAY 320 IV PRN (17:45)
[2016-11-17] MEDS ORDERED: SODIUM CHLORIDE 0.9% 250ML 250 ML IV ONE (17:45)
--- NOTE | 2016-11-17 18:53 | DIAGNOSTIC IMAGING REPORT ---
(CHEST FOR PE) ANGIO WITH CT DOSE: 479.18 mGy.cm HISTORY: Chest pain dyspnea TECHNIQUE: Multiaxial CT images of the chest were performed following the intravenous administration of contrast to evaluate the pulmonary arteries. Maximal intensity projection images were also obtained. A dose lowering technique was utilized adhering to the principles of ALARA. COMPARISON STUDY: 11/14/2016 FINDINGS: There is a normal caliber thoracic aorta with no evidence for dissection. There is no evidence for pulmonary embolus. No pleural effusions. No pneumothorax. The liver and spleen are unremarkable. Moderate mediastinal and hilar reactive adenopathy. Several reactive upper abdominal nodes. Consolidative infiltrative change right lung base IMPRESSION: No evidence for pulmonary embolus. Unchanging consolidative process right lower lobe. Mild reactive adenopathy stable from the prior exam The above report was generated using voice recognition software. It may contain grammatical, syntax or spelling errors. Electronically signed by: Jagjit Gillespie M.D. 11/17/2016 6:51 PM Dictated Date/Time: 11/17/2016 6:45 PM
--- NOTE | 2016-11-17 19:23 | DIAGNOSTIC IMAGING REPORT ---
VENOUS DOPPLER LWR EXT BILA HISTORY: Pain. Edema. r/o DVT COMPARISON STUDY: None. FINDINGS: There is normal compressibility, flow, and augmentation within the bilateral lower extremity deep venous systems. IMPRESSION: No DVT within the right or left lower extremity. The above report was generated using voice recognition software. It may contain grammatical, syntax or spelling errors. Electronically signed by: Jagjit Gillespie M.D. 11/17/2016 7:22 PM Dictated Date/Time: 11/17/2016 7:21 PM
[2016-11-17] MEDS ORDERED: SODIUM CHLORIDE 0.9% 1000ML 1,000 ML IV SCH (20:30)
[2016-11-17] MEDS ORDERED: LORAZEPAM 0.5 MG TAB PO PRN (20:45)
[2016-11-18] VITALS (10 sets, daily range): BP systolic 91–139; BP diastolic 57–77; PULSE 84–111; TEMP 36.4–36.9; O2SAT 92–97
[2016-11-18] MEDS: LEVALBUTEROL 0.63MG/3 ML NEB INH SCH ×4 (01:45→19:42)
[2016-11-18 04:53] LABS: HEMATOCRIT 28.6 % (37-47); MEAN CELL VOLUME 101.4 fL (80-100); MEAN CORPUSCULAR HEMOGLOBIN 33.3 pg (25-34); MEAN CORPUSCULAR HGB CONC 32.9 g/dl (32-36); MEAN PLATELET VOLUME 8.7 fL (7.4-10.4); PLATELET COUNT 311 K/uL (130-400); RED BLOOD COUNT 2.82 M/uL (4.2-5.4); WHITE BLOOD COUNT 14.87 K/uL (4.8-10.8)
[2016-11-18 05:12] LABS: BUN/CREATININE RATIO 37.7 (10-20); CALCIUM 7.9 mg/dl (8.5-10.1); CREATININE 0.78 mg/dl (0.60-1.20); POTASSIUM 4.1 mmol/L (3.5-5.1)
[2016-11-18] MEDS: DORNASE ALFA (2500U) 2.5MG/2.5ML INH SCH ×3 (07:21→20:16)
[2016-11-18] MEDS: ENOXAPARIN 40 MG/0.4 ML SYR SQ SCH (07:42)
[2016-11-18] MEDS: DOXYCYCLINE HYCLATE 100 MG CAP PO SCH ×2 (07:42→20:27)
[2016-11-18] MEDS: TAMOXIFEN CITRATE 10 MG TAB PO SCH (07:43)
--- NOTE | 2016-11-18 09:22 | DIAGNOSTIC IMAGING REPORT ---
CHEST 2 VIEWS ROUTINE HISTORY: Follow-up pneumonia. COMPARISON: Chest CTA 11/17/2016. FINDINGS: No pleural effusions. No pneumothorax. The left lung is clear. The heart is stable in size. The left PICC takes a more posterior course than expected and is located within the azygos vein.. Right lower lobe airspace opacity persists. No evidence for pulmonary edema. IMPRESSION: 1. No change in the right lower lobe airspace opacity consistent with a pneumonia. Recommend one month chest x-ray follow-up to ensure resolution. 2. The left PICC terminates in the azygos vein and not the SVC. Electronically signed by: Johann Carrion M.D. 11/18/2016 9:21 AM Dictated Date/Time: 11/18/2016 9:18 AM
--- NOTE | 2016-11-18 22:45 | Progress Note ---
Internal Med Progress Note Date of Service: Nov 18, 2016. Provider Documentation: SUBJECTIVE: no complain of dizzy spell or lightheadedness today no SOB on 3 L 02 via nasal canula still feels very weak and fatigued BP remains stable OBJECTIVE: Vital Signs-as noted below Exam: General-no sign of distress , comfortable , Eyes-sclera non icteric ENT-on 02 via nasal canula Neck-no JVD Lungs-improved auscultation , no audible wheeze or rales Heart-regular Abdomen-soft, non tender Extremities-no lower ext edema , no rash noted Neuro-AAO x3, no focal deficit Lab data as noted below. ASSESSMENT & PLAN: ACUTE HYPOXIC RESPIRATORY FAILURE: WITH RML/RLL PNEUMONIA -no evidence of sepsis respiratory status gradually improving now transitioned to 4 -3L 02 via nasal canula plan to wean down 02 to 2 L in AM pt will need 2 step exercise done prior to discharge home to assess home 02 requirement presented with Cxray and CT chest finding of persisted RLL infiltrate , not responding to multiple broad spectrum Abx was admitted to [facility] ICU since 11/05 with hypoxia/RML /RLL pneumonia medical records obtained form [facility] -pt does not have any prior hx of COPD , was not on home 02 -was treated with Zosyn, azithromycin, Rocephin, Vanco, and Cefepime however pneumonia and oxygen requirements have been persistent -underwent Bronchoscopy on 11/08/16 -gram stain shows gram + cocci , culture -no growth in 72 hrs Blood culture -no growth CT chest with contrast at [facility] 11/09/16 : no evidence of PE , dense consolidation of rt lower lobe most likely related to Pneumonia , non specific subcarinal and rt hilar adenopathy ECHO in [facility] : EF 55%, LA enlargement, small pericardial effusion, trace MR Pulmonary function studies 08/11/2015 Spirometry: Mild obstructive ventilatory disease with an FEV1 of 81% Lung lungs: Within normal limits Diffusion: Severely reduced at 38% with a DLCO/VA ratio of 80% pt transferred to [facility] For persisted respiratory failure no clinical improvement after Abx tx /bronchoscopy/respiratory support with IV Steroids / Neb tx -no evidence of sepsis pt on Abx with IV Levaquin, Vancomycin, and Cefepime - repeat blood cultures ordered at [facility] -no growth MRSA screen negative mild leukocytosis -possible steroid induced will D/c Vancomycin ( negative MRSA ) and Cefepime was on Levaquin developed diffuse rash -on trunk and abdomen Levaquin D/alexis Started on PO Doxycycline will need 10-14 days of tx added Prednisone and Benadryl cont to monitor Pulmonology consulted , appreciate input from Dr Langford concern for possible Vasculitis vs idiopathic interstitial lung disease -not responding to convention tx CT chest with out contrast a [facility] IMPRESSION: 1. There is dense airspace consolidation in the right lower lobe, overall similar in appearance to the 11/07/2016 examination. The appearance is typical for pneumonia. Radiographic follow-up to resolution is recommended. 2. The left lung is clear. 3. Cardiomegaly and trace pleural effusions. 4. Cirrhotic liver morphology. 5. Additional findings as above. ECHO No regional wall motion abnormalities noted. * The LV Ejection Fraction = 60-65%. * The right ventricle is mildly dilated. * The right ventricular systolic function is normal. * There is mild tricuspid regurgitation. * The calculated pulmonary artery systolic pressure is 32 mm Hg (normal). * There was no gross interatrial shunt on technically limited evaluaiton with administration of agitated saline contrast. * The resolution is not sufficient to exclude a PFO. * 2D findings do not suggest right ventricular pressure or volume overload. pt will continue to require High flow 02 for persistent hypoxia ordered MAULIK. ANCA , ESR , C reactive protein level may need repeat Bronchoscopy as hypoxia improves -will defer to Pulmonology HYPOTENSION /DIZZY SPELL ; symptom has resolved -possible due to hypotension BP remains stable after holding diuretics CTA of chest -negative for PE/ lower ext Doppler negative for DVT hold Losartan /HCTZ HTN - BP in lower side hold all antihypertensives for now HX BREAST CANCER \ HX BLADDER CANCER - per review of CT reports from [facility] Cevallos there was a right breast density noted - patient reports she is following with her oncologist regularly and is due for mammogram next month - continue Tamoxifen - had bladder tumor resected last fall; patient reports cystoscopies every 4 months HEPATIC LESIONS - noted on CT report from DANIEL Mart - will order CT liver with and with out contrast -consider GI eval if liver lesion noted in CT scan DVT PROPHYLAXIS moderate to high risk Sub q Lovenox Full code DISPOSITION cont to monitor in PCU expected to be discharged home when medically stable PT/OT eval requested will need 2 step home O 2 assessment prior to discharge will need pulmonology follow up as out pt Vital Signs: Date Time Temp Pulse Resp B/P (MAP) Pulse Ox O2 Delivery O2 Flow Rate FiO2 11/19/16 04:14 36.7 95 20 112/69 (83) 95 Nasal Cannula 5.0 11/19/16 04:00 Room Air 11/19/16 01:36 94 14 93 Nasal Cannula 3.0 11/18/16 23:59 Room Air 11/18/16 23:42 36.9 94 20 101/59 (73) 95 Room Air 11/18/16 20:18 105 18 93 Nasal Cannula 3.0 11/18/16 20:00 Nasal Cannula 4.0 11/18/16 19:45 95 18 95 Nasal Cannula 4.0 11/18/16 19:21 36.5 101 20 129/74 (92) 92 Nasal Cannula 4.0 11/18/16 16:00 Nasal Cannula 4.0 11/18/16 15:08 36.8 111 20 116/73 (87) 92 Nasal Cannula 4.0 11/18/16 14:17 84 18 93 Nasal Cannula 4.0 11/18/16 12:00 Nasal Cannula 4.0 11/18/16 11:15 36.6 92 18 139/77 (97) 96 4.0 11/18/16 08:00 Nasal Cannula 4.0 11/18/16 07:23 36.7 89 18 113/62 (79) 95 Room Air 11/18/16 07:21 91 18 97 Nasal Cannula 4.0 Lab Results:
[2016-11-19] VITALS (10 sets, daily range): BP systolic 110–153; BP diastolic 69–84; PULSE 92–107; TEMP 36.4–37; O2SAT 90–97
[2016-11-19] MEDS: LEVALBUTEROL 0.63MG/3 ML NEB INH SCH ×4 (01:35→19:14)
[2016-11-19] MEDS: DORNASE ALFA (2500U) 2.5MG/2.5ML INH SCH ×2 (07:02→19:14)
[2016-11-19] MEDS: ENOXAPARIN 40 MG/0.4 ML SYR SQ SCH (07:44)
[2016-11-19] MEDS: DOXYCYCLINE HYCLATE 100 MG CAP PO SCH ×2 (07:44→21:31)
[2016-11-19] MEDS: TAMOXIFEN CITRATE 10 MG TAB PO SCH (07:45)
--- NOTE | 2016-11-19 11:48 | Progress Note ---
Internal Med Progress Note Date of Service: Nov 19, 2016. Provider Documentation: SUBJECTIVE: Seen and examined at bedside Patient concerned about oxygen requirement Denies chest pain, SOB Has intermittent dry cough rash is improving OBJECTIVE: Vital Signs-as noted below Physical Exam: General Appearance:Moderately built and nourished, no apparent distress Head: normocephalic, Atraumatic Eyes: normal inspection, EOMI, PERRL Neck: supple, Trachea midline Respiratory/Chest: Normal breath sounds, CTA Cardiovascular: S1, S2, No murmur Abdomen/GI:Soft, Non tender, Bowel sounds present Extremities/Musculoskelatal:normal inspection, no edema Neurologic/Psych:grossly no focal neurological deficits Skin: Generalized rash improving Lab data as noted below. ASSESSMENT & PLAN: ACUTE HYPOXIC RESPIRATORY FAILURE: WITH RML/RLL PNEUMONIA Patient presented with CXR and CT chest finding of persisted RLL infiltrate , not responding to multiple broad spectrum Abx was admitted to [facility] ICU since 11/05 with hypoxia/RML /RLL pneumonia no evidence of sepsis Wean off oxygen as able need 2 step exercise prior to discharge As per medical records obtained form [facility]: No prior hx of COPD , was not on home 02 Was treated with Zosyn, azithromycin, Rocephin, Vanco, and Cefepime however pneumonia and oxygen requirements have been persistent underwent Bronchoscopy on 11/08/16 -gram stain shows gram + cocci , culture -no growth in 72 hrs Blood culture: no growth CT chest with contrast at [facility] 11/09/16 :no evidence of PE , dense consolidation of rt lower lobe most likely related to Pneumonia , non specific subcarinal and rt hilar adenopathy ECHO in [facility] : EF 55%, LA enlargement, small pericardial effusion, trace MR Pulmonary function studies 08/11/2015 Spirometry: Mild obstructive ventilatory disease with an FEV1 of 81% Lung lungs: Within normal limits Diffusion: Severely reduced at 38% with a DLCO/VA ratio of 80% Pt was on Abx with IV Levaquin, Vancomycin, and Cefepime - repeat blood cultures: no growth MRSA screen negative mild leukocytosis likely steroid induced Vancomycin/Cefepime discontinued was on Levaquin and developed diffuse rash -on trunk and abdomen Levaquin D/alexis as well Continue Doxycycline for 10-14 days Also on Prednisone and Benadryl Pulmonology consulted , appreciate input from Dr Langford concern for possible Vasculitis vs idiopathic interstitial lung disease -not responding to convention tx Serological work up pending ECHO: Normal EF, no gross interatrial shunt, Resolution no sufficient to exclude PFO HYPOTENSION /DIZZY SPELL ; symptom has resolved -possible due to hypotension BP stable after holding diuretics CTA of chest -negative for PE/ lower ext Doppler negative for DVT hold Losartan /HCTZ for now HTN Stable Plan to resume meds when able HX BREAST CANCER \ HX BLADDER CANCER per review of CT reports from [facility] Cevallos there was a right breast density noted patient reports she is following with her oncologist regularly and is due for mammogram next month continue Tamoxifen had bladder tumor resected last fall; patient reports cystoscopies every 4 months HEPATIC LESIONS noted on CT report from DANIEL Cevallos Follow up with oncologist as outpatient DVT Px SQ Lovenox Code Status: Full code DISPOSITION Expected to be discharged home when medically stable PT/OT eval requested will need 2 step home O 2 assessment prior to discharge will need pulmonology follow up as out pt PROCEDURES: CT Chest: 1. There is dense airspace consolidation in the right lower lobe, overall similar in appearance to the 11/07/2016 examination. The appearance is typical for pneumonia. Radiographic follow-up to resolution is recommended. 2. The left lung is clear. 3. Cardiomegaly and trace pleural effusions. 4. Cirrhotic liver morphology. 5. Additional findings as above. ECHO: * No regional wall motion abnormalities noted. * The LV Ejection Fraction = 60-65%. * The right ventricle is mildly dilated. * The right ventricular systolic function is normal. * There is mild tricuspid regurgitation. * The calculated pulmonary artery systolic pressure is 32 mm Hg (normal). * There was no gross interatrial shunt on technically limited evaluation with administration of agitated saline contrast. * The resolution is not sufficient to exclude a PFO. * 2D findings do not suggest right ventricular pressure or volume overload. Vital Signs: Date Time Temp Pulse Resp B/P (MAP) Pulse Ox O2 Delivery O2 Flow Rate FiO2 11/19/16 08:00 Nasal Cannula 4.0 11/19/16 07:18 36.5 92 18 130/76 (94) 97 Nasal Cannula 5.0 11/19/16 07:02 93 16 95 Nasal Cannula 3.0 11/19/16 04:14 36.7 95 20 112/69 (83) 95 Nasal Cannula 5.0 11/19/16 04:00 Room Air 11/19/16 01:36 94 14 93 Nasal Cannula 3.0 11/18/16 23:59 Room Air 11/18/16 23:42 36.9 94 20 101/59 (73) 95 Room Air 11/18/16 20:18 105 18 93 Nasal Cannula 3.0 11/18/16 20:00 Nasal Cannula 4.0 11/18/16 19:45 95 18 95 Nasal Cannula 4.0 11/18/16 19:21 36.5 101 20 129/74 (92) 92 Nasal Cannula 4.0 11/18/16 16:00 Nasal Cannula 4.0 11/18/16 15:08 36.8 111 20 116/73 (87) 92 Nasal Cannula 4.0 11/18/16 14:17 84 18 93 Nasal Cannula 4.0 11/18/16 12:00 Nasal Cannula 4.0
[2016-11-19 12:31] LABS: LEGIONELLA ANTIGEN DETECTED (NOT DETECTED)
[2016-11-19] MEDS ORDERED: AZITHROMYCIN 250 MG TAB PO ONE (14:30)
--- NOTE | 2016-11-19 15:52 | Pulmonology Progress Note ---
Pulmonary Progress Note Date of Service Nov 19, 2016. Attending Dr. Richmond Subjective Patient seen and examined today. She states that she's feeling somewhat better. She is less short of breath. She is still having a nonproductive cough. She states that she's stable to ambulate the halls without assistance and minimal dyspnea on exertion. She states that she still does have rash but it is improving. Objective Vital signs reviewed. MAXIMUM TEMPERATURE 36.7, blood pressure 112/69 to 152/84 , pulse 92-103, respiratory rate 14-20, SaO2 92-97% on room air. Gen.: She is out of bed to chair, awake alert oriented 3 no acute distress on room air CVS: S1-S2 regular rate and rhythm Chest/lungs: Lungs clear to auscultation bilaterally Abdomen: Soft, nondistended, bowel sounds positive Extremities: No edema bilaterally no cyanosis no clubbing. Skin: diffuse rash over back and extremities, blanchable, nontender, nonerythematous Labs reviewed. White blood cell count 14.87, hemoglobin 9.4, platelets 311 Pro-calcitonin 0.14 (WNL) AB.57/23/61 (4L) Immunology workup-- pending Micro-- MRSA swab: negative Blood x2: negative to date Urinary Legionella antigen positive Influenza A&B: Negative Imaging viewed and reviewed by me. Cardiac Echo (11/14/16) LV: EF=60-65%, RV: mildly dilated, with normal systolic function Atria: Left atria mildly dilated, no notable intra-atrial shunt Could not exclude PFO RSVP: 32mmHg Grade 1 diastolic dysfunction Medications reviewed. DANIEL Cevallos antibiotic course Bronchoscopy 11/08/16: Anatomically within normal limits, diffuse mucoid secretions bilaterally ABX: Zosyn, Azithromycin, Rocephin ICU: Vancomycin cefepime Pulmonary function studies 08/11/2015 Spirometry: Mild obstructive ventilatory disease with an FEV1 of 81% Lung: Within normal limits Diffusion: Severely reduced at 38% with a DLCO/VA ratio of 80% Assessment & Plan Hypoxemic respiratory failure-improved Right lower lobe pneumonia Rash Patient appears to be clinically improving since admission. She is requiring decreased amounts of oxygen. She is now on room air saturating 92% and ambulating without difficulty. She continues to have a nonproductive cough. Of note Legionella antigen from urine is positive this is suggestive of a current or recent infection. She was previous on Levaquin however this was discontinued due to severe diffuse erythematous rash. CT chest from 11/17/2016 shows a dense right lower lobe opacification. Chest x-ray from 11/18/2016 shows no change in right lower lobe opacification. We are currently treating this as an infectious etiology. She is currently on doxycycline and azithromycin were started today. If this could be a cryptogenic organizing pneumonia. At the current time I would continue with prednisone 40 mg with a slow taper. We are still awaiting immunological studies workup such as ANCA and MAULIK. Continue dornase alpha and aggressive pulmonary toilet. Continue with chair nebs every 4-6 hours. Continue DVT prophylaxis with Lovenox. I will sign off case for now. Please contact me if you've any further questions or concerns. Patient should follow with pulmonary as an outpatient within 2 weeks of hospital discharge. She should have interval follow-up imaging within 6 weeks to assess resolution of right lower lobe density. Data Medications: Current Inpatient Medications Medications (Trade) Dose Ordered Sig/Marlene Route Start Time Stop Time Status Last Admin Dose Admin Acetaminophen (Tylenol Tab) 650 mg Q4H PRN PO 11/13/16 21:30 12/13/16 21:29 Ondansetron HCl (Zofran Inj) 4 mg Q6H PRN IV 11/13/16 21:30 12/13/16 21:29 Polyethylene (Miralax Powder Packet) 17 gm DAILY PRN PO 11/13/16 21:30 12/13/16 21:29 Glucose (Glucose 40% Gel) 15-30 GRAMS 15 GRAMS... UD PRN PO 11/13/16 22:00 12/13/16 21:59 Glucose (Glucose Chew Tab) 4-8 Tablets 4 Tabl... UD PRN PO 11/13/16 22:00 12/13/16 21:59 Dextrose (Dextrose 50% 50ML Syringe) 25-50ML OF 50% DW IV FOR... UD PRN IV 11/13/16 22:00 12/13/16 21:59 Glucagon (Glucagon Inj) 1 mg UD PRN SQ 11/13/16 22:00 12/13/16 21:59 Albuterol/ Ipratropium (Duoneb) 3 ml Q6H PRN INH 11/13/16 23:45 12/13/16 23:44 Enoxaparin Sodium (Lovenox Inj) 40 mg QAM SQ 11/14/16 09:00 12/14/16 08:59 11/19/16 07:44 40 MG Tamoxifen Citrate (Nolvadex Tab) 20 mg QAM PO 11/14/16 09:00 12/14/16 08:59 11/19/16 07:45 20 MG Dornase Oj (Pulmozyme Inhalation Soln 2.5ml Amp) 2.5 ml BIDR INH 11/14/16 20:00 12/14/16 19:59 11/19/16 07:02 2.5 ML Levalbuterol (Xopenex 0.63 Mg/ 3 Ml Neb) 0.63 mg Q6R INH 11/14/16 15:00 12/14/16 14:59 11/19/16 14:09 0.63 MG Heparin Sodium (Porcine) (Heparin 10 Unit/ ml 5 ml Flush) 5 ml PRN PRN FLUSH 11/15/16 01:15 12/15/16 01:14 Doxycycline Hyclate (Vibramycin Cap) 100 mg BID PO 11/16/16 21:00 11/23/16 20:59 11/19/16 07:44 100 MG Prednisone (PredniSONE TAB) 40 mg DAILY PO 11/16/16 17:00 12/16/16 16:59 11/19/16 07:44 40 MG Diphenhydramine HCl (Benadryl Cap) 25 mg Q8 PRN PO 11/16/16 17:00 12/16/16 16:59 11/18/16 20:28 25 MG Ioversol (Optiray 320) 100 ml UD PRN IV 11/17/16 17:45 11/21/16 17:44 Lorazepam (Ativan Tab) 0.5 mg Q8 PRN PO 11/17/16 20:45 12/17/16 20:44 Azithromycin (Zithromax Tab) 250 mg QAM PO 11/20/16 09:00 11/27/16 08:59 I & O: 24-Hour Column 11/20/16 08:00 Intake Total 560 ml Output Total 250 ml Balance 310 ml Vital Signs: Date Time Temp Pulse Resp B/P (MAP) Pulse Ox O2 Delivery O2 Flow Rate FiO2 11/19/16 14:09 103 16 92 Room Air 11/19/16 11:58 Nasal Cannula 4.0 11/19/16 11:39 36.5 97 18 153/84 (107) 97 Room Air 11/19/16 08:00 Nasal Cannula 4.0 11/19/16 07:18 36.5 92 18 130/76 (94) 97 Nasal Cannula 5.0 11/19/16 07:02 93 16 95 Nasal Cannula 3.0 11/19/16 04:14 36.7 95 20 112/69 (83) 95 Nasal Cannula 5.0 11/19/16 04:00 Room Air 11/19/16 01:36 94 14 93 Nasal Cannula 3.0 11/18/16 23:59 Room Air 11/18/16 23:42 36.9 94 20 101/59 (73) 95 Room Air 11/18/16 20:18 105 18 93 Nasal Cannula 3.0 11/18/16 20:00 Nasal Cannula 4.0 11/18/16 19:45 95 18 95 Nasal Cannula 4.0 11/18/16 19:21 36.5 101 20 129/74 (92) 92 Nasal Cannula 4.0 11/18/16 16:00 Nasal Cannula 4.0
[2016-11-19] MEDS ORDERED: NURSING VERBAL MED ORDER ONE (19:15)
[2016-11-19] MEDS: LACTOBACILLUS ACIDOPHILUS (FLORANEX) TAB PO SCH (21:31)
[2016-11-20] VITALS (10 sets, daily range): BP systolic 95–127; BP diastolic 55–80; PULSE 82–114; TEMP 36.5–36.9; O2SAT 90–95
[2016-11-20] MEDS: LEVALBUTEROL 0.63MG/3 ML NEB INH SCH ×3 (01:58→14:18)
[2016-11-20 06:57] LABS: BASO % 0.5 %; BASO ABS # 0.05 K/uL (0-0.2); COMPLETE YES; EOS % 0.6 %; HEMATOCRIT 29.1 % (37-47); IG% 0.4 %; LYMPH % 28.8 %; LYMPH ABS # 2.66 K/uL (1.2-3.4); MEAN CELL VOLUME 102.1 fL (80-100); MEAN CORPUSCULAR HEMOGLOBIN 33.3 pg (25-34); MEAN CORPUSCULAR HGB CONC 32.6 g/dl (32-36); MEAN PLATELET VOLUME 9.1 fL (7.4-10.4); MONO % 8.8 %; NEUT % 60.9 %; PLATELET COUNT 298 K/uL (130-400); RED BLOOD COUNT 2.85 M/uL (4.2-5.4); WHITE BLOOD COUNT 9.24 K/uL (4.8-10.8)
[2016-11-20] MEDS: DORNASE ALFA (2500U) 2.5MG/2.5ML INH SCH (07:24)
[2016-11-20 07:28] LABS: BUN/CREATININE RATIO 30.4 (10-20); CALCIUM 7.8 mg/dl (8.5-10.1); CREATININE 0.86 mg/dl (0.60-1.20)
[2016-11-20] MEDS: ENOXAPARIN 40 MG/0.4 ML SYR SQ SCH (08:35)
[2016-11-20] MEDS: TAMOXIFEN CITRATE 10 MG TAB PO SCH (08:37)
[2016-11-20] MEDS: DOXYCYCLINE HYCLATE 100 MG CAP PO SCH (08:38)
[2016-11-20] MEDS: LACTOBACILLUS ACIDOPHILUS (FLORANEX) TAB PO SCH ×2 (08:39→12:49)
[2016-11-20] MEDS ORDERED: AZITHROMYCIN 250 MG TAB PO SCH (09:00)
--- NOTE | 2016-11-20 13:58 | Progress Note ---
Internal Med Progress Note Date of Service: Nov 20, 2016. Provider Documentation: SUBJECTIVE: Seen and examined at bedside Feels well Denies chest pain, SOB Less cough rash is improved Diarrhea improved OBJECTIVE: Vital Signs-as noted below Physical Exam: General Appearance:Moderately built and nourished, no apparent distress Head: normocephalic, Atraumatic Eyes: normal inspection, EOMI, PERRL Neck: supple, Trachea midline Respiratory/Chest: Normal breath sounds, CTA Cardiovascular: S1, S2, No murmur Abdomen/GI:Soft, Non tender, Bowel sounds present Extremities/Musculoskelatal:normal inspection, no edema Neurologic/Psych:grossly no focal neurological deficits Skin: Generalized rash improving Lab data as noted below. ASSESSMENT & PLAN: ACUTE HYPOXIC RESPIRATORY FAILURE: WITH RML/RLL LEGIONELLA PNEUMONIA Patient presented with CXR and CT chest finding of persisted RLL infiltrate , not responding to multiple broad spectrum Abx was admitted to [facility] ICU since 11/05 with hypoxia/RML /RLL pneumonia no evidence of sepsis Saturating well on Room air 2 step exercise: needs 2litres with activity As per medical records obtained form [facility]: No prior hx of COPD , was not on home 02 Was treated with Zosyn, azithromycin, Rocephin, Vanco, and Cefepime however pneumonia and oxygen requirements have been persistent underwent Bronchoscopy on 11/08/16 -gram stain shows gram + cocci , culture -no growth in 72 hrs Blood culture: no growth CT chest with contrast at [facility] 11/09/16 :no evidence of PE , dense consolidation of rt lower lobe most likely related to Pneumonia , non specific subcarinal and rt hilar adenopathy ECHO in [facility] : EF 55%, LA enlargement, small pericardial effusion, trace MR Pulmonary function studies 08/11/2015 Spirometry: Mild obstructive ventilatory disease with an FEV1 of 81% Lung lungs: Within normal limits Diffusion: Severely reduced at 38% with a DLCO/VA ratio of 80% Pt was on Abx with IV Levaquin, Vancomycin, and Cefepime - repeat blood cultures: no growth MRSA screen negative mild leukocytosis likely steroid induced Vancomycin/Cefepime discontinued was on Levaquin and developed diffuse rash -on trunk and abdomen Levaquin D/alexis as well Continue Doxycycline for 10-14 days Also on Prednisone and Benadryl Pulmonology consulted , appreciate input from Dr Langford concern for possible Vasculitis vs idiopathic interstitial lung disease -not responding to convention tx Serological work up pending ECHO: Normal EF, no gross interatrial shunt, Resolution no sufficient to exclude PFO HYPOTENSION /DIZZY SPELL ; symptom has resolved -possible due to hypotension BP stable after holding diuretics CTA of chest -negative for PE/ lower ext Doppler negative for DVT hold Losartan /HCTZ for now HTN Stable Plan to resume meds when able HX BREAST CANCER \ HX BLADDER CANCER per review of CT reports from DANIEL Cevallos there was a right breast density noted patient reports she is following with her oncologist regularly and is due for mammogram next month continue Tamoxifen had bladder tumor resected last fall; patient reports cystoscopies every 4 months HEPATIC LESIONS noted on CT report from DANIEL Cevallos Follow up with oncologist as outpatient DVT Px SQ Lovenox Code Status: Full code DISPOSITION Plan to discharge home today Follow up with your PCP Yessi Allen PA-C in 1 week as advised Follow up with your principal clerk typist in 2 weeks as advised (Please call for appointment: [phone]) Complete the antibiotic and prednisone course as advised Prednisone course: Start taking 30mg daily for 3 days, then 20mg for 3 days, then 10mg for 3 days, then 5mg for 3 days and stop Get repeat Chest X ray in 6 weeks and follow up with Seek immediate medical attention if your symptoms reoccur or worsen PROCEDURES: CT Chest: 1. There is dense airspace consolidation in the right lower lobe, overall similar in appearance to the 11/07/2016 examination. The appearance is typical for pneumonia. Radiographic follow-up to resolution is recommended. 2. The left lung is clear. 3. Cardiomegaly and trace pleural effusions. 4. Cirrhotic liver morphology. 5. Additional findings as above. ECHO: * No regional wall motion abnormalities noted. * The LV Ejection Fraction = 60-65%. * The right ventricle is mildly dilated. * The right ventricular systolic function is normal. * There is mild tricuspid regurgitation. * The calculated pulmonary artery systolic pressure is 32 mm Hg (normal). * There was no gross interatrial shunt on technically limited evaluation with administration of agitated saline contrast. * The resolution is not sufficient to exclude a PFO. * 2D findings do not suggest right ventricular pressure or volume overload. Vital Signs: Date Time Temp Pulse Resp B/P (MAP) Pulse Ox O2 Delivery O2 Flow Rate FiO2 11/20/16 12:00 Room Air 11/20/16 11:20 36.8 96 18 127/80 (96) 92 Room Air 11/20/16 10:28 92 Room Air 11/20/16 08:04 36.5 114 20 124/78 (93) 90 11/20/16 08:00 Room Air 11/20/16 07:24 87 14 94 Room Air 11/20/16 04:00 90 Room Air 11/20/16 03:14 36.9 101 19 95/55 (68) 90 Room Air 11/20/16 01:58 87 14 92 Room Air 11/20/16 00:01 90 Room Air 11/19/16 23:16 36.9 95 17 119/70 (86) 90 Room Air 11/19/16 20:00 Room Air 11/19/16 19:17 101 16 92 Room Air 11/19/16 19:13 36.4 107 18 110/71 (84) 90 Room Air 11/19/16 16:00 Room Air 11/19/16 15:39 37.0 92 18 152/84 (106) 11/19/16 14:09 103 16 92 Room Air Lab Results: Results Past 24 Hours Test 11/20/16 05:39 Range/Units White Blood Count 9.24 4.8-10.8 K/uL Red Blood Count 2.85 4.2-5.4 M/uL Hemoglobin 9.5 12.0-16.0 g/dL Hematocrit 29.1 37-47 % Mean Corpuscular Volume 102.1 80-100 fL Mean Corpuscular Hemoglobin 33.3 25-34 pg Mean Corpuscular Hemoglobin Concent 32.6 32-36 g/dl Platelet Count 298 130-400 K/uL Mean Platelet Volume 9.1 7.4-10.4 fL Neutrophils (%) (Auto) 60.9 % Lymphocytes (%) (Auto) 28.8 % Monocytes (%) (Auto) 8.8 % Eosinophils (%) (Auto) 0.6 % Basophils (%) (Auto) 0.5 % Neutrophils # (Auto) 5.62 1.4-6.5 K/uL Lymphocytes # (Auto) 2.66 1.2-3.4 K/uL Monocytes # (Auto) 0.81 0.11-0.59 K/uL Eosinophils # (Auto) 0.06 0-0.5 K/uL Basophils # (Auto) 0.05 0-0.2 K/uL RDW Standard Deviation 54.2 36.4-46.3 fL RDW Coefficient of Variation 14.5 11.5-14.5 % Immature Granulocyte % (Auto) 0.4 % Immature Granulocyte # (Auto) 0.04 0.00-0.02 K/uL Sodium Level 145 136-145 mmol/L Potassium Level 4.0 3.5-5.1 mmol/L Chloride Level 117 98-107 mmol/L Carbon Dioxide Level 20 21-32 mmol/L Anion Gap 8.0 3-11 mmol/L Blood Urea Nitrogen 26 7-18 mg/dl Creatinine 0.86 0.60-1.20 mg/dl Est Creatinine Clear Calc Drug Dose 62.0 ml/min Estimated GFR () 78.8 Estimated GFR (Non- 68.0 BUN/Creatinine Ratio 30.4 10-20 Random Glucose 89 70-99 mg/dl Calcium Level 7.8 8.5-10.1 mg/dl Microbiology Results 11/20/16 C.difficile Toxin B Gene (PCR) - Final, Complete No C. difficile toxin B gene detected
[2016-11-20] MEDS ORDERED: PRED10TA PO (14:03)
[2016-11-20] MEDS ORDERED: PRVHFAIN INH (14:03)
[2016-11-20] MEDS ORDERED: DXY100 PO (14:03)
--- NOTE | 2016-11-20 14:06 | Discharge Summary ---
Discharge Summary Date of Service Nov 20, 2016. Discharge Summary Admission Date: Nov 13, 2016 at 21:32 Discharge Date: Nov 20, 2016 Discharge Disposition: Home Principal Diagnosis: Pneumonia Procedures: CT Chest: 1. There is dense airspace consolidation in the right lower lobe, overall similar in appearance to the 11/07/2016 examination. The appearance is typical for pneumonia. Radiographic follow-up to resolution is recommended. 2. The left lung is clear. 3. Cardiomegaly and trace pleural effusions. 4. Cirrhotic liver morphology. 5. Additional findings as above. ECHO: * No regional wall motion abnormalities noted. * The LV Ejection Fraction = 60-65%. * The right ventricle is mildly dilated. * The right ventricular systolic function is normal. * There is mild tricuspid regurgitation. * The calculated pulmonary artery systolic pressure is 32 mm Hg (normal). * There was no gross interatrial shunt on technically limited evaluation with administration of agitated saline contrast. * The resolution is not sufficient to exclude a PFO. * 2D findings do not suggest right ventricular pressure or volume overload. Consultations: Pulmonology Pending Studies/Follow-Up: Follow up with your PCP Yessi Allen PA-C in 1 week as advised Follow up with your furniture finisher helper in 2 weeks as advised (Please call for appointment: [phone]) Complete the antibiotic and prednisone course as advised Prednisone course: Start taking 30mg daily for 3 days, then 20mg for 3 days, then 10mg for 3 days, then 5mg for 3 days and stop Use oxygen 2 litres with activity as advised Get repeat Chest X ray in 6 weeks and follow up with Seek immediate medical attention if your symptoms reoccur or worsen Medication Reconciliation New Medications: Albuterol (Ventolin Hfa) 60 Puffs/5400 Mcg Aers 2 PUFFS INH Q6H PRN for wheezing, shortness of breath for 14 Days, #1 EA Prednisone Tab (Prednisone) 10 Mg Tab 10 MG PO UD for 12 Days, #20 TAB Start taking 30mg daily for 3 days, then 20mg for 3 days, 10mg for 3 days, 5mg for 3 days and stop Doxycycline Hyclate (Doxycycline Hyclate) 100 Mg Cap 100 MG PO BID for 7 Days, #14 CAP Continued Medications: Alendronate Sodium (Fosamax) 70 Mg Tab 70 MG PO WK, TAB Cyclobenzaprine Hcl (Flexeril) 5 Mg Tab 1 TAB PO HS PRN for Pain for 30 Days, #30 TAB Hydrochlorothiazide (Hydrochlorothiazide) 12.5 Mg Tab 1 TAB PO DAILY Losartan Potassium (Cozaar) 25 Mg Tab 1 TAB PO DAILY for 30 Days, #30 TAB 5 Refills Meclizine Hcl (Meclizine Hcl) 25 Mg Tab 1 TAB PO TID PRN for Dizziness or Vertigo for 30 Days, #90 TAB Meloxicam (Mobic) 7.5 Mg Tab 1 TAB PO DAILY PRN for Pain for 30 Days, #30 TAB 1 Refill Tamoxifen (Nolvadex) 20 Mg Tab 20 MG PO QAM, TAB Admission Information HPI (per Admitting provider): 71 year old female who was transferred from [facility] for treatment of persistent pneumonia. Patient presented to the ER there on 11/05 with reports of shortness and breath and cough. Patient reports she was feeling sick a few days prior to going to the ED. In the ED, she was found to be hypoxic on room air and meet sepsis criteria. Patient has been treated with Zosyn, Zithromax, Rocephin, Vanco, and Cefepime. Patient underwent bronchoscopy and culture grew rare gram + cocci, AFB cultures are pending. Pneumonia has persisted and she continues to require significant amounts of oxygen. Patient currently feels like her breathing is slightly worse than yesterday but attributes it to the transfer here. She reports minimal cough. No chest pain. She denies lightheadedness, dizziness, diaphoresis, or syncope. Appetite has been good. She denies abdominal pain, nausea, vomiting, or diarrhea. No recent fevers or chills. She denies urinary symptoms. At the time of my exam, patient is resting in bed, currently on hiflow oxygen at 75% FiO2. Physical Exam (per Admitting): General Appearance: no apparent distress Head: normocephalic, atraumatic Eyes: normal inspection, sclerae normal ENT: hearing grossly normal Neck: supple, no JVD Respiratory/Chest: no respiratory distress, + crackles (right mid-lower lung edouard), + pertinent finding (on HiFlow oxygen at 75% Fi02) Cardiovascular: regular rate, rhythm, no edema, normal peripheral pulses Abdomen/GI: normal bowel sounds, non tender, soft Extremities/Musculoskelatal: normal inspection, no calf tenderness Neurologic/Psych: no motor/sensory deficits, alert, normal mood/affect, oriented x 3 Skin: normal color, warm/dry Hospital Course ACUTE HYPOXIC RESPIRATORY FAILURE: WITH RML/RLL LEGIONELLA PNEUMONIA Patient presented with CXR and CT chest finding of persisted RLL infiltrate , not responding to multiple broad spectrum Abx was admitted to [facility] ICU since 11/05 with hypoxia/RML /RLL pneumonia no evidence of sepsis Saturating well on Room air 2 step exercise: needs 2litres with activity As per medical records obtained form [facility]: No prior hx of COPD , was not on home 02 Was treated with Zosyn, azithromycin, Rocephin, Vanco, and Cefepime however pneumonia and oxygen requirements have been persistent underwent Bronchoscopy on 11/08/16 -gram stain shows gram + cocci , culture -no growth in 72 hrs Blood culture: no growth CT chest with contrast at [facility] 11/09/16 :no evidence of PE , dense consolidation of rt lower lobe most likely related to Pneumonia , non specific subcarinal and rt hilar adenopathy ECHO in [facility] : EF 55%, LA enlargement, small pericardial effusion, trace MR Pulmonary function studies 08/11/2015 Spirometry: Mild obstructive ventilatory disease with an FEV1 of 81% Lung lungs: Within normal limits Diffusion: Severely reduced at 38% with a DLCO/VA ratio of 80% Pt was on Abx with IV Levaquin, Vancomycin, and Cefepime - repeat blood cultures: no growth MRSA screen negative mild leukocytosis likely steroid induced Vancomycin/Cefepime discontinued was on Levaquin and developed diffuse rash -on trunk and abdomen Levaquin D/alexis as well Continue Doxycycline for 10-14 days Also on Prednisone and Benadryl Pulmonology consulted , appreciate input from Dr Langford concern for possible Vasculitis vs idiopathic interstitial lung disease -not responding to convention tx Serological work up pending ECHO: Normal EF, no gross interatrial shunt, Resolution no sufficient to exclude PFO HYPOTENSION /DIZZY SPELL ; symptom has resolved -possible due to hypotension BP stable after holding diuretics CTA of chest -negative for PE/ lower ext Doppler negative for DVT hold Losartan /HCTZ for now HTN Stable Plan to resume meds when able HX BREAST CANCER \\ HX BLADDER CANCER per review of CT reports from [facility] there was a right breast density noted patient reports she is following with her oncologist regularly and is due for mammogram next month continue Tamoxifen had bladder tumor resected last fall; patient reports cystoscopies every 4 months HEPATIC LESIONS noted on CT report from DANIEL Cevallos Follow up with oncologist as outpatient DVT Px SQ Lovenox Code Status: Full code DISPOSITION Plan to discharge home today Follow up with your PCP Yessi Allen PA-C in 1 week as advised Follow up with your furniture finisher helper in 2 weeks as advised (Please call for appointment: [phone]) Complete the antibiotic and prednisone course as advised Prednisone course: Start taking 30mg daily for 3 days, then 20mg for 3 days, then 10mg for 3 days, then 5mg for 3 days and stop Get repeat Chest X ray in 6 weeks and follow up with Seek immediate medical attention if your symptoms reoccur or worsen PROCEDURES: CT Chest: 1. There is dense airspace consolidation in the right lower lobe, overall similar in appearance to the 11/07/2016 examination. The appearance is typical for pneumonia. Radiographic follow-up to resolution is recommended. 2. The left lung is clear. 3. Cardiomegaly and trace pleural effusions. 4. Cirrhotic liver morphology. 5. Additional findings as above. ECHO: * No regional wall motion abnormalities noted. * The LV Ejection Fraction = 60-65%. * The right ventricle is mildly dilated. * The right ventricular systolic function is normal. * There is mild tricuspid regurgitation. * The calculated pulmonary artery systolic pressure is 32 mm Hg (normal). * There was no gross interatrial shunt on technically limited evaluation with administration of agitated saline contrast. * The resolution is not sufficient to exclude a PFO. * 2D findings do not suggest right ventricular pressure or volume overload. Total time spent on discharge = 34 minutes This includes examination of the patient, discharge planning, medication reconciliation, and communication with other providers. Discharge Instructions Discharge Instructions Date of Service Nov 20, 2016. Admission Reason for Admission: Pneumonia Discharge Discharge Diagnosis / Problem: Pneumonia Discharge Goals Goal(s): Decrease discomfort, Improve function Activity Recommendations Activity Limitations: resume your previous activity Exercise/Sports Limitations: as tolerated . Instructions / Follow-Up Instructions / Follow-Up Follow up with your PCP Yessi Allen PA-C in 1 week as advised Follow up with your furniture finisher helper in 2 weeks as advised (Please call for appointment: [phone]) Complete the antibiotic and prednisone course as advised Prednisone course: Start taking 30mg daily for 3 days, then 20mg for 3 days, then 10mg for 3 days, then 5mg for 3 days and stop Use oxygen 2 litres with activity as advised Get repeat Chest X ray in 6 weeks and follow up with Seek immediate medical attention if your symptoms reoccur or worsen Current Hospital Diet Patient's current hospital diet: Regular Diet, N/A Discharge Diet Recommended Diet: Regular Diet Pending Studies Studies pending at discharge: yes List of pending studies: Serological work up Laboratory Results Hemoglobin A1c Test 11/14/16 05:10 Range/Units Estimated Average Glucose 128 mg/dl Hemoglobin A1c 6.1 H 4.5-5.6 % Medical Emergencies . Who to Call and When: Medical Emergencies: If at any time you feel your situation is an emergency, please call 911 immediately. . Non-Emergent Contact Non-Emergency issues call your: Primary Care Provider, [employer] Call Non-Emergent contact if: you have a fever, your pain is not controlled, your pain is worsening, your pain is unusual for you, your pain is concerning you, you have any medication questions Seek immediate medical attention if your symptoms reoccur or worsen . . "Provider Documentation" section prepared by Wili Mathews. . VTE Core Measure Inpt VTE Proph given/why not?: Enoxaparin (Lovenox)SQ
[2016-11-20 22:28] LABS: MYELOPEROXIDASE AB <1.0 AI (<1.0)
== END 2016-11-20 15:13 | disposition home or self-care (01) | DRG 193 ==
LOC: C.2T 21:32
PROVIDERS: ADMIT Hospitalist; ATTEND Internal Medicine
DX: J18.9 Pneumonia, unspecified organism (principal); J96.01 Acute respiratory failure with hypoxia; C67.9 Malignant neoplasm of bladder, unspecified; C50.919 Malignant neoplasm of unspecified site of unspecified female breast; K21.9 Gastro-esophageal reflux disease without esophagitis; M85.80 Other specified disorders of bone density and structure, unspecified site; Z90.710 Acquired absence of both cervix and uterus; Z87.891 Personal history of nicotine dependence

== ENCOUNTER → 2017-01-27 | Outpatient (CLI) | payer OTHER ==
[~2017-01-27] MED LIST changes: +DXY100 PO; -ENAL2.5T PO; +LOSA1TAB PO; +MECL1TAB42 PO; +MELO7.5T7 PO; -NAPR-1169 PO; -NAPR220T40 PO; +PRVHFAIN INH; -TAMO20TA47 PO; +TAMO20TA9 PO
--- NOTE | 2017-01-27 15:13 | DIAGNOSTIC IMAGING REPORT ---
CT OF THE CHEST WITHOUT IV CONTRAST CLINICAL HISTORY: Breast cancer. Legionella pneumonia. Shortness of breath. COMPARISON STUDY: Chest CT November 17, 2016. CT DOSE: 381.89 mGy.cm TECHNIQUE: Axial images of the chest were obtained without IV contrast. Images were reviewed in the axial, sagittal, and coronal planes. IV contrast was not administered for this examination. A dose lowering technique was utilized adhering to the principles of ALARA. FINDINGS: No enlarged axillary, mediastinal or hilar lymph nodes are present. The size of the heart is normal. There is no pericardial effusion. Postoperative findings within the right breast are noted. Right lower lobe consolidation shown on CT of November 17, 2016 has markedly improved. There is mild residual groundglass and linear opacity. Central airways are patent. Mild left lung opacities favor atelectasis. There is no pneumothorax or pleural effusion. A few suspected hepatic cysts are noted. The gallbladder is surgically absent. The spleen is diminutive and contains calcifications. This is chronic. IMPRESSION: 1. Near complete resolution of right lower lobe consolidation shown on CT of November 17, 2016. Mild residual groundglass and linear opacities within the lungs favor atelectasis although a mild residual infectious process could appear similar. 2. No thoracic lymphadenopathy. 3. No pleural effusion. Electronically signed by: Toño Alejandre M.D. 01/27/2017 3:12 PM Dictated Date/Time: 01/27/2017 9:03 AM
== END | disposition home or self-care (01) ==
LOC: C.CTS 08:44
PROVIDERS: ATTEND Internal Medicine Critical Care Medicine
DX: C50.919 Malignant neoplasm of unspecified site of unspecified female breast (principal); A48.1 Legionnaires' disease; J98.11 Atelectasis

== ENCOUNTER → 2017-06-17 | Outpatient (CLI) | payer OTHER ==
[2017-06-17 13:28] VITALS: BP 125/77; PULSE 99; TEMP 36.5; O2SAT 94
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
== END | disposition home or self-care (01) ==
LOC: C.ONC 13:13
PROVIDERS: ATTEND Physician Assistant Medical
DX: Z08 Encounter for follow-up examination after completed treatment for malignant neoplasm (principal); Z92.3 Personal history of irradiation; Z85.3 Personal history of malignant neoplasm of breast